=== PATIENT | male | born 1965 | race Two or more races ===

== ENCOUNTER 2017-01-19 20:57 | Emergency (ER) | payer MEDICAID ==
[~2017-01-19] VITALS: Ht 172.7 cm; Wt 79.4 kg
[~2017-01-19 20:57] MED LIST: CARI250T8; ENAL2.5T; METO50TA15; NOR5T; TEMA7.5C
[2017-01-19 22:01] VITALS: BP 163/95
== END 2017-01-19 23:15 | disposition home or self-care (01) ==
LOC: ER 21:00
DX: S93.402A Sprain of unspecified ligament of left ankle, initial encounter (principal); M19.90 Unspecified osteoarthritis, unspecified site; I10 Essential (primary) hypertension; Z87.891 Personal history of nicotine dependence; Z91.041 Radiographic dye allergy status
CPT/HCPCS: 73610

== ENCOUNTER 2017-06-10 21:27 | Emergency (ER) | payer MEDICAID ==
[~2017-06-10] VITALS: Ht 175.3 cm; Wt 81.6 kg
[~2017-06-10 21:27] MED LIST changes: +CARI250T; -CARI250T8; +HYDR-4663; -NOR5T
[2017-06-10 22:08] LABS: Basophils # (auto) 0.1 uL; Basophils % (auto) 0.6 % (0.0-2.0); Eosinophils # (auto) 0 uL; Eosinophils % (auto) 0.1 % (0.0-7.0); Hematocrit 42.8 % (41.0-53.0); Lymphocytes # (auto) 1.4 uL; Lymphocytes % (auto) 8.1 % (10.0-50.0); Mean Corpuscular Hemoglobin 33.7 pg (28.0-32.0); Mean Corpuscular Volume 96.4 fL (80.0-100.0); Mean Platelet Volume 9.2 fL (6.9-10.8); Monocytes % (auto) 5.6 % (0.0-12.0); Neutrophils # (auto) 14.7 uL; Neutrophils % (auto) 85.6 % (37.0-80.0); Nucleated Red Blood Cells % 0.1 %; Platelet Count (auto) 103 10^3/uL (140-450); Red Cell Distribution Width 13.7 % (11.8-14.3); White Blood Cell 17.1 10^3/uL (4.4-10.8)
[2017-06-10 22:29] LABS: Albumin 2.8 g/dL (3.4-5.0); BUN/Creatinine Ratio 15.2; Bilirubin, Total 1.7 mg/dL (0.2-1.0); Calcium 8.2 mg/dL (8.5-10.1); Magnesium 1.8 mg/dL (1.6-2.6); Potassium 3.8 mmol/L (3.5-5.1)
[2017-06-10] MEDS ORDERED: ACETAMINOPHEN 325 MG TAB PO ONE (22:30)
[2017-06-11 02:26] VITALS: BP 141/92
[2017-06-11] MEDS ORDERED: PIPERACILLIN-TAZO 4.5GM 100 ML IV ONE (02:30)
== END 2017-06-11 03:27 | disposition home or self-care (01) ==
LOC: ER 21:27
DX: J18.8 Other pneumonia, unspecified organism (principal); M19.90 Unspecified osteoarthritis, unspecified site; I10 Essential (primary) hypertension; J45.909 Unspecified asthma, uncomplicated; R53.1 Weakness
CPT/HCPCS: 36415; 70450; 71010; 80053; 83735; 84484; 85025; 96365; 99285; J2543

== ENCOUNTER 2017-09-14 10:50 | Emergency (ER) | payer MEDICAID ==
[~2017-09-14] VITALS: Ht 170.2 cm; Wt 68.0 kg
[~2017-09-14 10:50] MED LIST changes: -HYDR-4663; +HYDR-4683
[2017-09-14] MEDS ORDERED: cefTRIAXone SOD 1,000 MG VL IM ONE ×2 (12:45→22:30)
[2017-09-14] MEDS ORDERED: methylPREDNISolone SOD SUCC 125 MG/2 ML VL IM ONE (12:45)
[2017-09-14 22:30] VITALS: BP 138/92
[2017-09-14] MEDS ORDERED: KETOROLAC TROMETH 60MG/2ML VIAL IM ONE (22:30)
[2017-09-14] MEDS ORDERED: TETANUS-DIPTH-ACEL PERTUSSIS 0.5ML SYRG IM ONE (22:45)
== END 2017-09-14 23:21 | disposition home or self-care (01) ==
LOC: ER 10:50
DX: L03.116 Cellulitis of left lower limb (principal); L03.115 Cellulitis of right lower limb; I10 Essential (primary) hypertension; J45.909 Unspecified asthma, uncomplicated; M19.90 Unspecified osteoarthritis, unspecified site; Z88.6 Allergy status to analgesic agent; Z91.041 Radiographic dye allergy status; Z87.891 Personal history of nicotine dependence; Z79.899 Other long term (current) drug therapy
CPT/HCPCS: 90471; 90715; 93971; 96372; 99284; J0696

== ENCOUNTER 2017-09-18 23:21 | Inpatient (IN) | payer MEDICAID ==
[~2017-09-18] VITALS: Ht 175.3 cm; Wt 72.0 kg
[2017-09-19 00:19] LABS: Basophils # (auto) 0.1 uL; Eosinophils # (auto) 0.2 uL; Eosinophils % (auto) 2.7 % (0.0-7.0); Hemoglobin 13.6 g/dL (13.5-17.5); Lymphocytes # (auto) 0.6 uL; Lymphocytes % (auto) 7.7 % (10.0-50.0); Mean Corpuscular Hemoglobin 33.6 pg (28.0-32.0); Mean Corpuscular Hgb Conc. 34.7 g/dL (32.0-36.0); Mean Corpuscular Volume 96.8 fL (80.0-100.0); Monocytes # (auto) 0.8 uL; Monocytes % (auto) 10.3 % (0.0-12.0); Neutrophils # (auto) 6.2 uL; Neutrophils % (auto) 78.3 % (37.0-80.0); Platelet Count (auto) 126 10^3/uL (140-450); Red Blood Cells 4.03 10^6/uL (4.5-5.90); Red Cell Distribution Width 13.3 % (11.8-14.3); White Blood Cell 7.9 10^3/uL (4.4-10.8)
[2017-09-19 00:33] LABS: INR 1.09 (0.9-1.15); Partial Thromboplastin Time 29.6 sec (22.64-33.71); Prothrombin Time 11.9 sec (9.37-12.3)
[2017-09-19 00:35] LABS: Albumin 2.3 g/dL (3.4-5.0); Bilirubin, Total 0.8 mg/dL (0.2-1.0); Total Protein 6.1 g/dL (6.4-8.2)
[2017-09-19 00:37] LABS: Lactic Acid w/Reflex 2.4 mmol/L (0.4-2.0)
[2017-09-19 00:43] LABS: Potassium 2.9 mmol/L (3.5-5.1)
[2017-09-19] MEDS ORDERED: POTASSIUM CHL 20MEQ/50ML 100 ML IV ONE (00:49)
[2017-09-19] MEDS ORDERED: VANCOMYCIN 1GM/250ML 250 ML IV ONE (01:00)
[2017-09-19] MEDS ORDERED: SODIUM CHLORIDE 0.9% 1,000 ML IV ONE (01:00)
[2017-09-19] MEDS ORDERED: ONDANSETRON HCL 4 MG/2 ML VIAL IV ONE (01:00)
[2017-09-19] MEDS ORDERED: cefTRIAXone 1GM/10ml IVPUSH 10 ML IV ONE (01:00)
[2017-09-19] MEDS ORDERED: HYDROmorphone HCL 2 MG/ML VL IV ONE ×2 (01:00→03:30)
[2017-09-19] MEDS: POTASSIUM CHL 20MEQ/50ML 50 ML IV SCH ×2 (01:18→03:35)
[2017-09-19 04:20] LABS: Urine Bacteria NONE SEEN /hpf (None Seen); Urine Blood Negative /uL (Negative); Urine Specific Gravity 1.015 (1.001-1.035); Urine WBC 1 /hpf (0 - 3)
[2017-09-19 04:27] LABS: Alcohol, Urine < 3.0 mg/dL (0-5); Amphetamine Screen, Urine POSITIVE (NEGATIVE); Benzodiazephine Screen, Urine NEGATIVE (NEGATIVE); Cannabinoid Screen, Urine NEGATIVE (NEGATIVE); Cocaine Screen, Urine NEGATIVE (NEGATIVE); Opiate Scree,Urine NEGATIVE (NEGATIVE); Phencyclidine Screen, Urine NEGATIVE (NEGATIVE)
[2017-09-19 04:34] LABS: Barbiturate Scree,Urine NEGATIVE (NEGATIVE)
[2017-09-19] MEDS ORDERED: VANCOMYCIN PER PHARMACY 0 MG IV SCH (06:15)
[2017-09-19] MEDS: SODIUM CHLORIDE 0.9% 1,000 ML IV SCH ×2 (06:35→19:34)
[2017-09-19] MEDS: VANCOMYCIN 1GM/250ML 250 ML IV SCH ×2 (08:29→20:33)
[2017-09-19] MEDS: cefTRIAXone 1GM/10ml IVPUSH 10 ML IV SCH (09:43)
[2017-09-19] MEDS: HCTZ 25 MG TAB PO SCH (09:44)
[2017-09-19] MEDS: ENALAPRIL MALEATE 2.5 MG TAB PO SCH (09:44)
[2017-09-19] MEDS: ENOXAPARIN SOD 40 MG/0.4 ML SYRINGE SC SCH (09:44)
[2017-09-19] MEDS: METOPROLOL SUCCINATE XL 50 MG TAB PO SCH (09:44)
[2017-09-19] MEDS: FAMOTIDINE 20 MG TAB PO SCH ×2 (09:44→22:20)
[2017-09-19] MEDS: MORPHINE SULFATE 10 MG/ML INJ 1ML SDV IV PRN ×2 (10:23→20:09)
[2017-09-19] MEDS: ONDANSETRON HCL 4 MG/2 ML VIAL IV PRN (10:23)
[2017-09-19] MEDS: HYDROcodone-ACET 5/325MG TAB PO PRN ×2 (12:23→18:55)
[2017-09-19 19:52] VITALS: BP 136/67
[2017-09-19 20:00] VITALS: BP 153/76
[2017-09-19 21:55] VITALS: BP 153/76
[2017-09-20] MEDS: MORPHINE SULFATE 10 MG/ML INJ 1ML SDV IV PRN ×3 (01:19→09:37)
[2017-09-20] MEDS ORDERED: POTA10TA51 PO (01:54)
[2017-09-20] MEDS: HYDROcodone-ACET 5/325MG TAB PO PRN ×3 (04:08→15:00)
[2017-09-20 05:00] VITALS: BP 154/87
[2017-09-20] MEDS: SODIUM CHLORIDE 0.9% 1,000 ML IV SCH (05:33)
[2017-09-20 07:41] VITALS: BP 139/81
[2017-09-20 07:51] LABS: Basophils # (auto) 0.1 uL; Basophils % (auto) 1.1 % (0.0-2.0); Eosinophils # (auto) 0.2 uL; Eosinophils % (auto) 2.4 % (0.0-7.0); Hematocrit 38.4 % (41.0-53.0); Hemoglobin 13.3 g/dL (13.5-17.5); Lymphocytes # (auto) 0.9 uL; Lymphocytes % (auto) 14.3 % (10.0-50.0); Mean Corpuscular Hemoglobin 33.6 pg (28.0-32.0); Mean Corpuscular Hgb Conc. 34.5 g/dL (32.0-36.0); Mean Corpuscular Volume 97.2 fL (80.0-100.0); Monocytes # (auto) 0.6 uL; Monocytes % (auto) 8.9 % (0.0-12.0); Neutrophils # (auto) 4.6 uL; Neutrophils % (auto) 73.3 % (37.0-80.0); Nucleated Red Blood Cells % 0.1 %; Platelet Count (auto) 134 10^3/uL (140-450); Red Blood Cells 3.95 10^6/uL (4.5-5.90); Red Cell Distribution Width 13.2 % (11.8-14.3); White Blood Cell 6.3 10^3/uL (4.4-10.8)
[2017-09-20 08:13] LABS: BUN/Creatinine Ratio 24.5; Bilirubin, Total 0.8 mg/dL (0.2-1.0); Calcium 7.4 mg/dL (8.5-10.1); Potassium 3.8 mmol/L (3.5-5.1); Total Protein 5.7 g/dL (6.4-8.2)
[2017-09-20] MEDS: VANCOMYCIN 1GM/250ML 250 ML IV SCH (09:33)
[2017-09-20] MEDS: ENOXAPARIN SOD 40 MG/0.4 ML SYRINGE SC SCH (09:37)
[2017-09-20] MEDS: ENALAPRIL MALEATE 2.5 MG TAB PO SCH (09:38)
[2017-09-20] MEDS: FAMOTIDINE 20 MG TAB PO SCH ×2 (09:38→21:46)
[2017-09-20] MEDS: METOPROLOL SUCCINATE XL 50 MG TAB PO SCH (09:39)
[2017-09-20] MEDS: cefTRIAXone 1GM/10ml IVPUSH 10 ML IV SCH (09:39)
[2017-09-20] MEDS: HCTZ 25 MG TAB PO SCH (09:52)
[2017-09-20 11:26] VITALS: BP 120/69
[2017-09-20 16:22] VITALS: BP 137/79
[2017-09-20] MEDS: HYDROmorphone HCL 2 MG/ML VL IV PRN ×2 (17:04→21:46)
[2017-09-20 20:00] VITALS: BP 153/76
[2017-09-20] MEDS: VANCOMYCIN 1,500 MG in D5W 5% 250 ML IV SCH (21:36)
[2017-09-20 22:12] VITALS: BP 136/80
[2017-09-21] MEDS: HYDROcodone-ACET 5/325MG TAB PO PRN ×4 (00:01→20:30)
[2017-09-21] MEDS: SODIUM CHLORIDE 0.9% 1,000 ML IV SCH ×2 (00:01→11:34)
[2017-09-21] MEDS: TEMAZEPAM 15 MG CAP PO PRN (02:04)
[2017-09-21] MEDS: HYDROmorphone HCL 2 MG/ML VL IV PRN ×6 (02:04→23:16)
[2017-09-21 05:12] VITALS: BP 128/70
[2017-09-21 09:07] VITALS: BP 131/78
[2017-09-21] MEDS: VANCOMYCIN 1,500 MG in D5W 5% 250 ML IV SCH ×2 (10:12→21:19)
[2017-09-21] MEDS: HCTZ 25 MG TAB PO SCH (10:14)
[2017-09-21] MEDS: FAMOTIDINE 20 MG TAB PO SCH ×4 (10:14→22:25)
[2017-09-21] MEDS: METOPROLOL SUCCINATE XL 50 MG TAB PO SCH (10:14)
[2017-09-21] MEDS: ENOXAPARIN SOD 40 MG/0.4 ML SYRINGE SC SCH (10:15)
[2017-09-21] MEDS: ENALAPRIL MALEATE 2.5 MG TAB PO SCH (10:15)
[2017-09-21 10:50] LABS: BUN/Creatinine Ratio 23.9; Calcium 7.3 mg/dL (8.5-10.1); Potassium 3.8 mmol/L (3.5-5.1)
[2017-09-21] MEDS ORDERED: cefTRIAXone 1GM/10ml IVPUSH 10 ML IV SCH (11:00)
[2017-09-21 11:37] LABS: Basophils # (auto) 0.1 uL; Basophils % (auto) 0.8 % (0.0-2.0); Eosinophils # (auto) 0.2 uL; Eosinophils % (auto) 3.3 % (0.0-7.0); Hemoglobin 12.6 g/dL (13.5-17.5); Lymphocytes # (auto) 1.2 uL; Lymphocytes % (auto) 18.3 % (10.0-50.0); Mean Corpuscular Hemoglobin 33.7 pg (28.0-32.0); Mean Corpuscular Hgb Conc. 34.9 g/dL (32.0-36.0); Mean Corpuscular Volume 96.6 fL (80.0-100.0); Monocytes # (auto) 0.7 uL; Monocytes % (auto) 10.5 % (0.0-12.0); Neutrophils # (auto) 4.3 uL; Neutrophils % (auto) 67.1 % (37.0-80.0); Platelet Count (auto) 135 10^3/uL (140-450); Red Blood Cells 3.73 10^6/uL (4.5-5.90); Red Cell Distribution Width 13.4 % (11.8-14.3); White Blood Cell 6.4 10^3/uL (4.4-10.8)
[2017-09-21] MEDS: PIPERACILLIN-TAZO 4.5GM 50 ML IV SCH ×2 (12:21→20:15)
[2017-09-21] MEDS: METHOCARBAMOL 500 MG TAB PO SCH ×5 (12:22→22:25)
[2017-09-21 13:11] VITALS: BP 139/83
[2017-09-21 16:10] VITALS: BP 140/78
[2017-09-21 21:58] VITALS: BP 130/68
[2017-09-22] MEDS: SODIUM CHLORIDE 0.9% 1,000 ML IV SCH ×2 (00:54→14:14)
[2017-09-22] MEDS: HYDROmorphone HCL 2 MG/ML VL IV PRN ×4 (03:52→19:57)
[2017-09-22] MEDS: PIPERACILLIN-TAZO 4.5GM 50 ML IV SCH ×3 (03:58→20:48)
[2017-09-22 05:47] VITALS: BP 136/76
[2017-09-22 08:00] VITALS: BP_SYST 101; BP_SYST 127; BP_DIAS 68; BP_DIAS 77
[2017-09-22] MEDS: VANCOMYCIN 1,500 MG in D5W 5% 250 ML IV SCH (09:47)
[2017-09-22] MEDS: HCTZ 25 MG TAB PO SCH (09:47)
[2017-09-22] MEDS: METOPROLOL SUCCINATE XL 50 MG TAB PO SCH (09:48)
[2017-09-22] MEDS: ENALAPRIL MALEATE 2.5 MG TAB PO SCH (09:49)
[2017-09-22] MEDS: ENOXAPARIN SOD 40 MG/0.4 ML SYRINGE SC SCH (09:50)
[2017-09-22] MEDS: KETOROLAC TROMETH 30 MG/ML 1ML VIAL IV PRN ×3 (10:02→21:55)
[2017-09-22 10:30] LABS: Basophils # (auto) 0.1 uL; Basophils % (auto) 1.2 % (0.0-2.0); Eosinophils # (auto) 0.1 uL; Eosinophils % (auto) 2.1 % (0.0-7.0); Hematocrit 36.1 % (41.0-53.0); Hemoglobin 12.3 g/dL (13.5-17.5); Lymphocytes # (auto) 0.9 uL; Lymphocytes % (auto) 13.9 % (10.0-50.0); Mean Corpuscular Hgb Conc. 34.2 g/dL (32.0-36.0); Mean Corpuscular Volume 96.6 fL (80.0-100.0); Monocytes # (auto) 0.6 uL; Monocytes % (auto) 8.3 % (0.0-12.0); Neutrophils # (auto) 4.9 uL; Neutrophils % (auto) 74.5 % (37.0-80.0); Platelet Count (auto) 147 10^3/uL (140-450); Red Blood Cells 3.74 10^6/uL (4.5-5.90); Red Cell Distribution Width 13.2 % (11.8-14.3); White Blood Cell 6.6 10^3/uL (4.4-10.8)
[2017-09-22 10:54] LABS: Albumin 1.9 g/dL (3.4-5.0); BUN/Creatinine Ratio 27.5; Bilirubin, Total 0.5 mg/dL (0.2-1.0); Calcium 7.4 mg/dL (8.5-10.1); Potassium 4.3 mmol/L (3.5-5.1); Total Protein 5.6 g/dL (6.4-8.2)
[2017-09-22] MEDS: METHOCARBAMOL 500 MG TAB PO SCH ×2 (12:20→17:52)
[2017-09-22 13:01] VITALS: BP 133/77
[2017-09-22 17:21] VITALS: BP 101/45
[2017-09-22] MEDS: VANCOMYCIN 1GM/250ML 250 ML IV SCH (17:52)
[2017-09-22 20:00] VITALS: BP 136/78
[2017-09-22 21:54] VITALS: BP 136/78
[2017-09-22] MEDS: FAMOTIDINE 20 MG TAB PO SCH (22:20)
[2017-09-22] MEDS: TEMAZEPAM 15 MG CAP PO PRN (22:21)
[2017-09-23] MEDS: HYDROmorphone HCL 2 MG/ML VL IV PRN ×6 (00:12→23:04)
[2017-09-23] MEDS: VANCOMYCIN 1GM/250ML 250 ML IV SCH ×3 (00:49→20:13)
[2017-09-23] MEDS: HYDROcodone-ACET 5/325MG TAB PO PRN ×3 (03:01→21:17)
[2017-09-23] MEDS: SODIUM CHLORIDE 0.9% 1,000 ML IV SCH ×2 (03:50→18:47)
[2017-09-23] MEDS: KETOROLAC TROMETH 30 MG/ML 1ML VIAL IV PRN ×3 (04:06→21:15)
[2017-09-23] MEDS: PIPERACILLIN-TAZO 4.5GM 50 ML IV SCH ×3 (04:06→23:04)
[2017-09-23 04:42] VITALS: BP 143/86
[2017-09-23] MEDS: METHOCARBAMOL 500 MG TAB PO SCH ×4 (06:01→23:03)
[2017-09-23 09:00] VITALS: BP 113/71
[2017-09-23] MEDS: ENALAPRIL MALEATE 2.5 MG TAB PO SCH (10:00)
[2017-09-23] MEDS: ENOXAPARIN SOD 40 MG/0.4 ML SYRINGE SC SCH (10:00)
[2017-09-23] MEDS: FAMOTIDINE 20 MG TAB PO SCH (10:01)
[2017-09-23] MEDS: HCTZ 25 MG TAB PO SCH (10:01)
[2017-09-23] MEDS: METOPROLOL SUCCINATE XL 50 MG TAB PO SCH (10:02)
[2017-09-23 13:00] VITALS: BP 133/71
[2017-09-23] MEDS: ONDANSETRON HCL 4 MG/2 ML VIAL IV PRN ×3 (14:36→23:04)
[2017-09-23 17:00] VITALS: BP 129/72
[2017-09-23 20:00] VITALS: BP 151/80
[2017-09-23 22:00] VITALS: BP 151/80
[2017-09-24] MEDS: HYDROcodone-ACET 5/325MG TAB PO PRN ×4 (01:15→16:50)
[2017-09-24] MEDS: HYDROmorphone HCL 2 MG/ML VL IV PRN ×4 (03:23→20:19)
[2017-09-24] MEDS: ONDANSETRON HCL 4 MG/2 ML VIAL IV PRN ×4 (03:23→20:18)
[2017-09-24] MEDS: VANCOMYCIN 1GM/250ML 250 ML IV SCH ×3 (04:10→19:37)
[2017-09-24 05:00] VITALS: BP 150/102
[2017-09-24] MEDS: SODIUM CHLORIDE 0.9% 1,000 ML IV SCH ×2 (05:47→19:37)
[2017-09-24] MEDS: PIPERACILLIN-TAZO 4.5GM 50 ML IV SCH ×4 (05:47→21:44)
[2017-09-24] MEDS: METHOCARBAMOL 500 MG TAB PO SCH ×4 (05:47→21:43)
[2017-09-24] MEDS: KETOROLAC TROMETH 30 MG/ML 1ML VIAL IV PRN ×3 (05:47→18:15)
[2017-09-24 07:56] LABS: Basophils # (auto) 0.1 uL; Basophils % (auto) 0.8 % (0.0-2.0); Eosinophils # (auto) 0.2 uL; Eosinophils % (auto) 3.2 % (0.0-7.0); Hematocrit 34.3 % (41.0-53.0); Hemoglobin 11.7 g/dL (13.5-17.5); Lymphocytes # (auto) 1.2 uL; Mean Corpuscular Hemoglobin 33.5 pg (28.0-32.0); Mean Corpuscular Hgb Conc. 34.2 g/dL (32.0-36.0); Mean Corpuscular Volume 97.8 fL (80.0-100.0); Monocytes # (auto) 0.6 uL; Monocytes % (auto) 9.5 % (0.0-12.0); Neutrophils # (auto) 4.4 uL; Neutrophils % (auto) 67.5 % (37.0-80.0); Platelet Count (auto) 157 10^3/uL (140-450); Red Blood Cells 3.51 10^6/uL (4.5-5.90); Red Cell Distribution Width 13.3 % (11.8-14.3); White Blood Cell 6.6 10^3/uL (4.4-10.8)
[2017-09-24 08:08] LABS: Calcium 7.3 mg/dL (8.5-10.1); Potassium 3.8 mmol/L (3.5-5.1)
[2017-09-24 09:00] VITALS: BP 167/96
[2017-09-24] MEDS: HCTZ 25 MG TAB PO SCH (09:39)
[2017-09-24] MEDS: METOPROLOL SUCCINATE XL 50 MG TAB PO SCH (09:39)
[2017-09-24] MEDS: FAMOTIDINE 20 MG TAB PO SCH ×2 (09:40→21:44)
[2017-09-24] MEDS: ENALAPRIL MALEATE 2.5 MG TAB PO SCH (09:40)
[2017-09-24] MEDS: ENOXAPARIN SOD 40 MG/0.4 ML SYRINGE SC SCH (09:40)
[2017-09-24 13:00] VITALS: BP 135/91
[2017-09-24 17:00] VITALS: BP 166/93
[2017-09-24] MEDS: TEMAZEPAM 15 MG CAP PO PRN (21:44)
[2017-09-24 22:00] VITALS: BP 125/71
[2017-09-25] MEDS: ONDANSETRON HCL 4 MG/2 ML VIAL IV PRN ×2 (00:51→05:42)
[2017-09-25] MEDS: HYDROmorphone HCL 2 MG/ML VL IV PRN ×6 (00:51→23:07)
[2017-09-25] MEDS: KETOROLAC TROMETH 30 MG/ML 1ML VIAL IV PRN ×3 (02:24→17:08)
[2017-09-25] MEDS: VANCOMYCIN 1GM/250ML 250 ML IV SCH ×3 (03:39→19:48)
[2017-09-25 05:00] VITALS: BP 153/92
[2017-09-25] MEDS: METHOCARBAMOL 500 MG TAB PO SCH ×4 (05:40→21:42)
[2017-09-25] MEDS: PIPERACILLIN-TAZO 4.5GM 50 ML IV SCH ×3 (05:41→21:43)
[2017-09-25 07:30] LABS: Basophils # (auto) 0.1 uL; Basophils % (auto) 1.3 % (0.0-2.0); Eosinophils # (auto) 0.2 uL; Eosinophils % (auto) 2.5 % (0.0-7.0); Hematocrit 34.2 % (41.0-53.0); Hemoglobin 11.7 g/dL (13.5-17.5); Lymphocytes # (auto) 1.5 uL; Lymphocytes % (auto) 17.6 % (10.0-50.0); Mean Corpuscular Hemoglobin 33.3 pg (28.0-32.0); Mean Corpuscular Hgb Conc. 34.3 g/dL (32.0-36.0); Mean Corpuscular Volume 97.1 fL (80.0-100.0); Monocytes # (auto) 0.8 uL; Monocytes % (auto) 8.7 % (0.0-12.0); Neutrophils # (auto) 6.1 uL; Neutrophils % (auto) 69.9 % (37.0-80.0); Nucleated Red Blood Cells % 0.1 %; Platelet Count (auto) 179 10^3/uL (140-450); Red Blood Cells 3.53 10^6/uL (4.5-5.90); Red Cell Distribution Width 13.4 % (11.8-14.3); White Blood Cell 8.8 10^3/uL (4.4-10.8)
[2017-09-25 07:57] LABS: Albumin 1.9 g/dL (3.4-5.0); BUN/Creatinine Ratio 17.5; Bilirubin, Total 0.5 mg/dL (0.2-1.0); Calcium 7.4 mg/dL (8.5-10.1); Potassium 4.3 mmol/L (3.5-5.1); Total Protein 5.9 g/dL (6.4-8.2)
[2017-09-25 08:47] VITALS: BP 133/90
[2017-09-25] MEDS: SODIUM CHLORIDE 0.9% 1,000 ML IV SCH ×2 (08:54→22:28)
[2017-09-25] MEDS: METOPROLOL SUCCINATE XL 50 MG TAB PO SCH (10:00)
[2017-09-25] MEDS ORDERED: HYDROmorphone HCL 2 MG/ML VL IV ONE (10:00)
[2017-09-25] MEDS: LEVOFLOXACIN 750MG 150 ML IV SCH (10:17)
[2017-09-25] MEDS: HCTZ 25 MG TAB PO SCH (10:18)
[2017-09-25] MEDS: FAMOTIDINE 20 MG TAB PO SCH ×2 (10:18→21:42)
[2017-09-25] MEDS: ENOXAPARIN SOD 40 MG/0.4 ML SYRINGE SC SCH (10:18)
[2017-09-25] MEDS: ENALAPRIL MALEATE 2.5 MG TAB PO SCH (10:19)
[2017-09-25] MEDS: ACETAMINOPHEN 325 MG TAB PO PRN (10:27)
[2017-09-25 12:49] VITALS: BP 151/79
[2017-09-25 16:45] VITALS: BP 132/69
[2017-09-25 21:39] VITALS: BP 149/92
[2017-09-25] MEDS: TEMAZEPAM 15 MG CAP PO PRN (21:42)
[2017-09-26] MEDS: KETOROLAC TROMETH 30 MG/ML 1ML VIAL IV PRN ×2 (01:35→09:24)
[2017-09-26] MEDS: HYDROmorphone HCL 2 MG/ML VL IV PRN (03:38)
[2017-09-26] MEDS: VANCOMYCIN 1GM/250ML 250 ML IV SCH ×3 (03:48→20:40)
[2017-09-26 05:00] VITALS: BP 139/89
[2017-09-26] MEDS: PIPERACILLIN-TAZO 4.5GM 50 ML IV SCH ×3 (05:38→23:04)
[2017-09-26] MEDS: METHOCARBAMOL 500 MG TAB PO SCH ×4 (05:39→21:41)
[2017-09-26 09:04] VITALS: BP 132/83
[2017-09-26] MEDS: FAMOTIDINE 20 MG TAB PO SCH ×2 (09:25→21:41)
[2017-09-26] MEDS: HCTZ 25 MG TAB PO SCH (09:26)
[2017-09-26] MEDS: LEVOFLOXACIN 750MG 150 ML IV SCH (09:27)
[2017-09-26] MEDS: ENALAPRIL MALEATE 2.5 MG TAB PO SCH (09:27)
[2017-09-26] MEDS: METOPROLOL SUCCINATE XL 50 MG TAB PO SCH (09:28)
[2017-09-26] MEDS: ENOXAPARIN SOD 40 MG/0.4 ML SYRINGE SC SCH (09:41)
[2017-09-26] MEDS: SODIUM CHLORIDE 0.9% 1,000 ML IV SCH (11:34)
[2017-09-26] MEDS ORDERED: KETOROLAC TROMETH 30 MG/ML 1ML VIAL IV PRN (12:00)
[2017-09-26] MEDS: MORPHINE SULFATE 10 MG/ML INJ 1ML SDV IV PRN ×3 (12:40→21:40)
[2017-09-26 13:03] VITALS: BP 118/62
[2017-09-26] MEDS: HYDROcodone-ACET 5/325MG TAB PO PRN (15:40)
[2017-09-26 17:20] VITALS: BP 150/87
[2017-09-26] MEDS: PRO-STAT 64 30ML PO SCH (18:00)
[2017-09-26] MEDS: TEMAZEPAM 15 MG CAP PO PRN (21:41)
[2017-09-26] MEDS: ASCORBIC ACID 500 MG TAB PO SCH (21:42)
[2017-09-26 22:49] VITALS: BP 141/78
[2017-09-27] MEDS: SODIUM CHLORIDE 0.9% 1,000 ML IV SCH ×2 (00:41→14:16)
[2017-09-27] MEDS: MORPHINE SULFATE 10 MG/ML INJ 1ML SDV IV PRN ×5 (01:50→21:23)
[2017-09-27] MEDS: VANCOMYCIN 1GM/250ML 250 ML IV SCH ×3 (03:44→19:56)
[2017-09-27 04:56] VITALS: BP 141/82
[2017-09-27] MEDS: PIPERACILLIN-TAZO 4.5GM 50 ML IV SCH ×3 (06:26→22:35)
[2017-09-27] MEDS: METHOCARBAMOL 500 MG TAB PO SCH ×4 (06:27→22:43)
[2017-09-27 08:00] VITALS: BP_SYST 132; BP_SYST 144; BP_DIAS 82; BP_DIAS 83
[2017-09-27] MEDS: ASCORBIC ACID 500 MG TAB PO SCH ×2 (10:00→22:43)
[2017-09-27] MEDS: ENOXAPARIN SOD 40 MG/0.4 ML SYRINGE SC SCH ×2 (10:00→11:22)
[2017-09-27] MEDS: HCTZ 25 MG TAB PO SCH (11:20)
[2017-09-27] MEDS: ENALAPRIL MALEATE 2.5 MG TAB PO SCH (11:20)
[2017-09-27] MEDS: METOPROLOL SUCCINATE XL 50 MG TAB PO SCH (11:20)
[2017-09-27] MEDS: PRO-STAT 64 30ML PO SCH ×2 (11:21→17:15)
[2017-09-27] MEDS: FAMOTIDINE 20 MG TAB PO SCH ×2 (11:21→22:43)
[2017-09-27] MEDS: MULTIPLE VITAMINS W/ MINERALS TAB PO SCH (11:21)
[2017-09-27] MEDS: LEVOFLOXACIN 750MG 150 ML IV SCH (11:21)
[2017-09-27 13:00] VITALS: BP 148/74
[2017-09-27 16:52] VITALS: BP 148/90
[2017-09-27 22:00] VITALS: BP 138/76
[2017-09-28] MEDS ORDERED: MORPHINE SULFATE 4 MG/ML SYR/VIAL ONE ×2 (01:42→05:40)
[2017-09-28] MEDS: MORPHINE SULFATE 10 MG/ML INJ 1ML SDV IV PRN ×2 (01:47→05:43)
[2017-09-28] MEDS: SODIUM CHLORIDE 0.9% 1,000 ML IV SCH ×2 (04:18→17:50)
[2017-09-28] MEDS: VANCOMYCIN 1GM/250ML 250 ML IV SCH ×3 (04:18→20:09)
[2017-09-28 05:46] VITALS: BP 128/69
[2017-09-28] MEDS: PIPERACILLIN-TAZO 4.5GM 50 ML IV SCH ×3 (06:28→22:11)
[2017-09-28] MEDS: METHOCARBAMOL 500 MG TAB PO SCH ×4 (06:28→22:12)
[2017-09-28] MEDS: PRO-STAT 64 30ML PO SCH ×2 (08:00→17:50)
[2017-09-28 09:26] VITALS: BP 140/90
[2017-09-28] MEDS: LEVOFLOXACIN 750MG 150 ML IV SCH (09:33)
[2017-09-28] MEDS: ENOXAPARIN SOD 40 MG/0.4 ML SYRINGE SC SCH (09:33)
[2017-09-28] MEDS: ENALAPRIL MALEATE 2.5 MG TAB PO SCH (09:34)
[2017-09-28] MEDS: METOPROLOL SUCCINATE XL 50 MG TAB PO SCH (09:34)
[2017-09-28] MEDS: MULTIPLE VITAMINS W/ MINERALS TAB PO SCH (09:35)
[2017-09-28] MEDS: FAMOTIDINE 20 MG TAB PO SCH ×2 (09:35→22:00)
[2017-09-28] MEDS: HCTZ 25 MG TAB PO SCH (09:35)
[2017-09-28] MEDS: ASCORBIC ACID 500 MG TAB PO SCH ×2 (09:58→22:13)
[2017-09-28] MEDS: HYDROcodone-ACET 5/325MG TAB PO PRN ×2 (10:00→22:13)
[2017-09-28] MEDS: MORPHINE SULF INJ 2 MG/ML SYRINGE 1ML IV PRN ×2 (11:22→16:26)
[2017-09-28] MEDS: CARISOPRODOL 350 MG TAB PO SCH ×3 (12:14→23:57)
[2017-09-28 13:00] VITALS: BP 130/89
[2017-09-28] MEDS: HYDROcodone-ACET 10/325MG TAB PO PRN (14:35)
[2017-09-28 17:06] VITALS: BP 123/80
[2017-09-28 22:48] VITALS: BP 133/73
[2017-09-29] MEDS: HYDROcodone-ACET 10/325MG TAB PO PRN (01:33)
[2017-09-29] MEDS: VANCOMYCIN 1GM/250ML 250 ML IV SCH ×3 (04:14→19:49)
[2017-09-29 04:58] VITALS: BP 113/69
[2017-09-29] MEDS: PIPERACILLIN-TAZO 4.5GM 50 ML IV SCH ×3 (05:43→22:53)
[2017-09-29] MEDS: METHOCARBAMOL 500 MG TAB PO SCH ×4 (05:44→22:54)
[2017-09-29] MEDS: SODIUM CHLORIDE 0.9% 1,000 ML IV SCH ×2 (05:44→19:49)
[2017-09-29] MEDS: CARISOPRODOL 350 MG TAB PO SCH ×3 (05:44→18:15)
[2017-09-29] MEDS: MORPHINE SULF INJ 2 MG/ML SYRINGE 1ML IV PRN ×4 (05:51→19:49)
[2017-09-29 06:02] LABS: Albumin 2.1 g/dL (3.4-5.0); BUN/Creatinine Ratio 28.6; Calcium 8.3 mg/dL (8.5-10.1); Potassium 3.9 mmol/L (3.5-5.1)
[2017-09-29 06:04] LABS: Bilirubin, Total 0.6 mg/dL (0.2-1.0); Total Protein 6.7 g/dL (6.4-8.2)
[2017-09-29] MEDS: PRO-STAT 64 30ML PO SCH ×2 (08:00→18:15)
[2017-09-29 09:00] VITALS: BP 134/94
[2017-09-29] MEDS: ENOXAPARIN SOD 40 MG/0.4 ML SYRINGE SC SCH ×2 (10:00→10:26)
[2017-09-29] MEDS: HCTZ 25 MG TAB PO SCH (10:25)
[2017-09-29] MEDS: METOPROLOL SUCCINATE XL 50 MG TAB PO SCH (10:25)
[2017-09-29] MEDS: FAMOTIDINE 20 MG TAB PO SCH ×2 (10:26→22:53)
[2017-09-29] MEDS: MULTIPLE VITAMINS W/ MINERALS TAB PO SCH (10:26)
[2017-09-29] MEDS: ENALAPRIL MALEATE 2.5 MG TAB PO SCH (10:26)
[2017-09-29] MEDS: ASCORBIC ACID 500 MG TAB PO SCH ×2 (10:26→22:54)
[2017-09-29] MEDS: LEVOFLOXACIN 750MG 150 ML IV SCH (10:27)
[2017-09-29 13:00] VITALS: BP 140/85
[2017-09-29 16:56] VITALS: BP 125/69
[2017-09-29 22:00] VITALS: BP 134/87
[2017-09-30] MEDS: HYDROcodone-ACET 5/325MG TAB PO PRN ×2 (00:43→15:57)
[2017-09-30] MEDS: MORPHINE SULF INJ 2 MG/ML SYRINGE 1ML IV PRN ×2 (01:15→06:05)
[2017-09-30] MEDS: VANCOMYCIN 1GM/250ML 250 ML IV SCH ×3 (04:14→20:41)
[2017-09-30] MEDS: HYDROcodone-ACET 10/325MG TAB PO PRN ×3 (04:23→17:49)
[2017-09-30 05:00] VITALS: BP 135/73
[2017-09-30] MEDS: PIPERACILLIN-TAZO 4.5GM 50 ML IV SCH ×3 (06:30→22:15)
[2017-09-30] MEDS: METHOCARBAMOL 500 MG TAB PO SCH ×4 (06:50→22:14)
[2017-09-30] MEDS: CARISOPRODOL 350 MG TAB PO SCH ×4 (06:50→17:49)
[2017-09-30 09:00] VITALS: BP 134/83
[2017-09-30] MEDS: ASCORBIC ACID 500 MG TAB PO SCH ×2 (09:19→22:14)
[2017-09-30] MEDS: FAMOTIDINE 20 MG TAB PO SCH ×2 (09:19→22:15)
[2017-09-30] MEDS: LEVOFLOXACIN 750MG 150 ML IV SCH (09:19)
[2017-09-30] MEDS: MULTIPLE VITAMINS W/ MINERALS TAB PO SCH (09:19)
[2017-09-30] MEDS: HCTZ 25 MG TAB PO SCH (09:20)
[2017-09-30] MEDS: METOPROLOL SUCCINATE XL 50 MG TAB PO SCH (09:20)
[2017-09-30] MEDS: ENALAPRIL MALEATE 2.5 MG TAB PO SCH (09:21)
[2017-09-30] MEDS: SODIUM CHLORIDE 0.9% 1,000 ML IV SCH ×2 (09:21→22:16)
[2017-09-30] MEDS: PRO-STAT 64 30ML PO SCH ×2 (09:22→17:48)
[2017-09-30] MEDS: ENOXAPARIN SOD 40 MG/0.4 ML SYRINGE SC SCH (09:32)
[2017-09-30 12:21] VITALS: BP 126/79
[2017-09-30] MEDS ORDERED: KETOROLAC TROMETH 30 MG/ML 1ML VIAL IV PRN (14:30)
[2017-09-30 14:33] LABS: BUN/Creatinine Ratio 21.9; Calcium 7.9 mg/dL (8.5-10.1); Potassium 3.7 mmol/L (3.5-5.1)
[2017-09-30] MEDS: ACETAMINOPHEN 325 MG TAB PO PRN (15:57)
[2017-09-30] MEDS ORDERED: CEFTRIAXONE SODIUM 2 GM in D5W 5% 50 ML IV ONE (16:00)
[2017-09-30 16:49] VITALS: BP 95/58
[2017-09-30 22:19] VITALS: BP 114/70
[2017-10-01] MEDS: CARISOPRODOL 350 MG TAB PO SCH ×5 (00:21→23:47)
[2017-10-01] MEDS: HYDROcodone-ACET 10/325MG TAB PO PRN ×3 (03:29→17:07)
[2017-10-01] MEDS: VANCOMYCIN 1GM/250ML 250 ML IV SCH ×3 (03:59→20:45)
[2017-10-01] MEDS: ACETAMINOPHEN 325 MG TAB PO PRN ×2 (04:02→18:10)
[2017-10-01 04:26] VITALS: BP 129/71
[2017-10-01] MEDS: PIPERACILLIN-TAZO 4.5GM 50 ML IV SCH ×3 (05:27→23:34)
[2017-10-01] MEDS: METHOCARBAMOL 500 MG TAB PO SCH ×4 (05:28→22:37)
[2017-10-01] MEDS: PRO-STAT 64 30ML PO SCH ×2 (08:00→18:00)
[2017-10-01 08:25] LABS: Basophils # (auto) 0.1 uL; Basophils % (auto) 1.4 % (0.0-2.0); Eosinophils # (auto) 0.1 uL; Eosinophils % (auto) 1.1 % (0.0-7.0); Hematocrit 40.3 % (41.0-53.0); Mean Corpuscular Hemoglobin 33.5 pg (28.0-32.0); Mean Corpuscular Hgb Conc. 34.7 g/dL (32.0-36.0); Mean Corpuscular Volume 96.5 fL (80.0-100.0); Monocytes # (auto) 0.5 uL; Monocytes % (auto) 10.2 % (0.0-12.0); Neutrophils # (auto) 3.7 uL; Neutrophils % (auto) 69.3 % (37.0-80.0); Nucleated Red Blood Cells % 0.1 %; Platelet Count (auto) 65 10^3/uL (140-450); Red Blood Cells 4.18 10^6/uL (4.5-5.90); Red Cell Distribution Width 14.4 % (11.8-14.3); White Blood Cell 5.4 10^3/uL (4.4-10.8)
[2017-10-01 08:41] LABS: Potassium 3.9 mmol/L (3.5-5.1)
[2017-10-01 09:00] VITALS: BP 117/71
[2017-10-01 09:32] LABS: INR 1.19 (0.9-1.15)
[2017-10-01] MEDS: LEVOFLOXACIN 750MG 150 ML IV SCH (09:57)
[2017-10-01] MEDS: MULTIPLE VITAMINS W/ MINERALS TAB PO SCH (09:58)
[2017-10-01] MEDS: ASCORBIC ACID 500 MG TAB PO SCH ×2 (09:58→22:27)
[2017-10-01] MEDS: FAMOTIDINE 20 MG TAB PO SCH ×2 (09:58→22:27)
[2017-10-01] MEDS: HCTZ 25 MG TAB PO SCH (09:59)
[2017-10-01] MEDS: ENALAPRIL MALEATE 2.5 MG TAB PO SCH (10:00)
[2017-10-01] MEDS: METOPROLOL SUCCINATE XL 50 MG TAB PO SCH (10:00)
[2017-10-01] MEDS: ENOXAPARIN SOD 40 MG/0.4 ML SYRINGE SC SCH (10:00)
[2017-10-01 13:00] VITALS: BP 136/89
[2017-10-01] MEDS ORDERED: LIDOCAINE 1% HCL (LOCAL ANESTH.) INJ 20ML MDV ID ONE (15:30)
[2017-10-01 17:00] VITALS: BP 123/73
[2017-10-01] MEDS: SODIUM CHLORIDE 0.9% 1,000 ML IV SCH (17:08)
[2017-10-01] MEDS: ONDANSETRON HCL 4 MG/2 ML VIAL IV PRN (20:45)
[2017-10-01] MEDS: SODIUM CHLOR 0.9% PF (SALINE LOCK) 10ML VIAL IV SCH (20:45)
[2017-10-01 22:00] VITALS: BP 134/68
[2017-10-01] MEDS: HYDROcodone-ACET 5/325MG TAB PO PRN (23:48)
[2017-10-02] MEDS: SODIUM CHLORIDE 0.9% 1,000 ML IV SCH ×2 (00:54→14:14)
[2017-10-02] MEDS: VANCOMYCIN 1GM/250ML 250 ML IV SCH ×3 (04:01→20:30)
[2017-10-02] MEDS: PIPERACILLIN-TAZO 4.5GM 50 ML IV SCH ×2 (05:46→14:00)
[2017-10-02] MEDS: CARISOPRODOL 350 MG TAB PO SCH ×5 (05:47→18:00)
[2017-10-02] MEDS: METHOCARBAMOL 500 MG TAB PO SCH ×6 (05:47→21:45)
[2017-10-02 06:17] VITALS: BP 135/81
[2017-10-02] MEDS: ACETAMINOPHEN 325 MG TAB PO PRN (07:19)
[2017-10-02] MEDS: PRO-STAT 64 30ML PO SCH ×2 (08:00→18:00)
[2017-10-02 09:00] VITALS: BP 149/87
[2017-10-02] MEDS: ENOXAPARIN SOD 40 MG/0.4 ML SYRINGE SC SCH (10:00)
[2017-10-02] MEDS: MULTIPLE VITAMINS W/ MINERALS TAB PO SCH (10:10)
[2017-10-02] MEDS: LEVOFLOXACIN 750MG 150 ML IV SCH (10:10)
[2017-10-02] MEDS: SODIUM CHLOR 0.9% PF (SALINE LOCK) 10ML VIAL IV SCH ×2 (10:10→21:43)
[2017-10-02] MEDS: FAMOTIDINE 20 MG TAB PO SCH ×2 (10:10→21:44)
[2017-10-02] MEDS: HCTZ 25 MG TAB PO SCH (10:17)
[2017-10-02] MEDS: METOPROLOL SUCCINATE XL 50 MG TAB PO SCH (10:18)
[2017-10-02] MEDS: ASCORBIC ACID 500 MG TAB PO SCH ×2 (10:19→21:44)
[2017-10-02] MEDS: ENALAPRIL MALEATE 2.5 MG TAB PO SCH (10:19)
[2017-10-02 13:00] VITALS: BP 120/72
[2017-10-02 13:34] LABS: Basophils # (auto) 0 uL; Eosinophils # (auto) 0.1 uL; Hemoglobin 14.7 g/dL (13.5-17.5); Monocytes # (auto) 0.8 uL; Neutrophils # (auto) 3.2 uL; Nucleated Red Blood Cells % 0.1 %; White Blood Cell 5.7 10^3/uL (4.4-10.8)
[2017-10-02 13:36] LABS: Basophils % (auto) 0.5 % (0.0-2.0); Eosinophils % (auto) 2.1 % (0.0-7.0); Lymphocytes # (auto) 1.5 uL; Lymphocytes % (auto) 26.2 % (10.0-50.0); Mean Corpuscular Hemoglobin 33.3 pg (28.0-32.0); Mean Corpuscular Hgb Conc. 34.2 g/dL (32.0-36.0); Mean Corpuscular Volume 97.2 fL (80.0-100.0); Monocytes % (auto) 14.4 % (0.0-12.0); Neutrophils % (auto) 56.8 % (37.0-80.0); Red Blood Cells 4.43 10^6/uL (4.5-5.90); Red Cell Distribution Width 14.4 % (11.8-14.3)
[2017-10-02 13:53] LABS: Albumin 2.5 g/dL (3.4-5.0); Bilirubin, Total 0.6 mg/dL (0.2-1.0); Calcium 8.2 mg/dL (8.5-10.1); Potassium 3.5 mmol/L (3.5-5.1); Total Protein 7.5 g/dL (6.4-8.2)
[2017-10-02 15:11] LABS: Platelet Count (auto) 12 10^3/uL (140-450)
[2017-10-02] MEDS: OXYCODONE W/ ACETAMINOPHEN 5/325MG TABLET PO PRN ×2 (16:49→20:44)
[2017-10-02 17:00] VITALS: BP 143/71
[2017-10-02 22:00] VITALS: BP 145/84
[2017-10-03] MEDS: CARISOPRODOL 350 MG TAB PO SCH ×5 (00:20→23:39)
[2017-10-03] MEDS: SODIUM CHLORIDE 0.9% 1,000 ML IV SCH ×2 (03:34→16:54)
[2017-10-03] MEDS: VANCOMYCIN 1GM/250ML 250 ML IV SCH ×3 (04:04→19:54)
[2017-10-03 05:00] VITALS: BP 130/82
[2017-10-03] MEDS: METHOCARBAMOL 500 MG TAB PO SCH ×4 (05:38→21:29)
[2017-10-03] MEDS: OXYCODONE W/ ACETAMINOPHEN 5/325MG TABLET PO PRN (08:55)
[2017-10-03 09:00] VITALS: BP 134/78
[2017-10-03] MEDS ORDERED: MEPERIDINE HCL (50 MG/ML) 1 ML VIAL IV ONE (09:00)
[2017-10-03] MEDS: ENOXAPARIN SOD 40 MG/0.4 ML SYRINGE SC SCH (10:00)
[2017-10-03 10:25] LABS: Basophils # (auto) 0 uL; Eosinophils # (auto) 0.2 uL; Hemoglobin 12.8 g/dL (13.5-17.5); Lymphocytes # (auto) 1.5 uL; Monocytes # (auto) 0.7 uL
[2017-10-03 10:26] LABS: Basophils % (auto) 0.4 % (0.0-2.0); Eosinophils % (auto) 3.9 % (0.0-7.0); Hematocrit 37.3 % (41.0-53.0); Lymphocytes % (auto) 28.6 % (10.0-50.0); Mean Corpuscular Hemoglobin 33.3 pg (28.0-32.0); Mean Corpuscular Hgb Conc. 34.3 g/dL (32.0-36.0); Monocytes % (auto) 13.2 % (0.0-12.0); Neutrophils # (auto) 2.8 uL; Neutrophils % (auto) 53.9 % (37.0-80.0); Nucleated Red Blood Cells % 0.1 %; Red Blood Cells 3.84 10^6/uL (4.5-5.90); Red Cell Distribution Width 14.2 % (11.8-14.3); White Blood Cell 5.2 10^3/uL (4.4-10.8)
[2017-10-03 10:51] LABS: Albumin 2.1 g/dL (3.4-5.0); BUN/Creatinine Ratio 23.7; Bilirubin, Total 0.7 mg/dL (0.2-1.0); Potassium 3.6 mmol/L (3.5-5.1); Total Protein 6.5 g/dL (6.4-8.2)
[2017-10-03 11:25] LABS: Platelet Count (auto) 11 10^3/uL (140-450)
[2017-10-03] MEDS: LEVOFLOXACIN 750MG 150 ML IV SCH (11:31)
[2017-10-03] MEDS: SODIUM CHLOR 0.9% PF (SALINE LOCK) 10ML VIAL IV SCH ×2 (11:31→21:29)
[2017-10-03] MEDS: MULTIPLE VITAMINS W/ MINERALS TAB PO SCH (11:32)
[2017-10-03] MEDS: HCTZ 25 MG TAB PO SCH (11:32)
[2017-10-03] MEDS: FAMOTIDINE 20 MG TAB PO SCH ×2 (11:32→21:30)
[2017-10-03] MEDS: ASCORBIC ACID 500 MG TAB PO SCH ×2 (11:33→21:30)
[2017-10-03] MEDS: ENALAPRIL MALEATE 2.5 MG TAB PO SCH (11:34)
[2017-10-03] MEDS: METOPROLOL SUCCINATE XL 50 MG TAB PO SCH (11:34)
[2017-10-03] MEDS: PRO-STAT 64 30ML PO SCH ×2 (11:41→18:59)
[2017-10-03 13:00] VITALS: BP 136/95
[2017-10-03 17:00] VITALS: BP 139/70
[2017-10-03] MEDS: MEPERIDINE HCL (25 MG/ML) 1ML VIAL IV PRN (19:52)
[2017-10-03 21:30] VITALS: BP 143/84
[2017-10-03] MEDS: TEMAZEPAM 15 MG CAP PO PRN (21:30)
[2017-10-04] MEDS: MEPERIDINE HCL (25 MG/ML) 1ML VIAL IV PRN ×4 (01:57→21:24)
[2017-10-04] MEDS: VANCOMYCIN 1GM/250ML 250 ML IV SCH ×3 (04:10→20:30)
[2017-10-04 05:00] VITALS: BP 138/82
[2017-10-04] MEDS: METHOCARBAMOL 500 MG TAB PO SCH ×5 (05:53→21:23)
[2017-10-04] MEDS: SODIUM CHLORIDE 0.9% 1,000 ML IV SCH ×2 (05:53→20:48)
[2017-10-04] MEDS: CARISOPRODOL 350 MG TAB PO SCH ×3 (05:53→18:46)
[2017-10-04] MEDS: PRO-STAT 64 30ML PO SCH ×2 (08:17→18:00)
[2017-10-04 08:44] LABS: Eosinophils # (auto) 0.2 uL; Lymphocytes # (auto) 1.4 uL; Monocytes # (auto) 0.4 uL; Nucleated Red Blood Cells % 0.2 %
[2017-10-04 08:46] LABS: Basophils # (auto) 0 uL; Basophils % (auto) 0.2 % (0.0-2.0); Eosinophils % (auto) 4.1 % (0.0-7.0); Hematocrit 35.9 % (41.0-53.0); Hemoglobin 12.4 g/dL (13.5-17.5); Mean Corpuscular Hemoglobin 33.6 pg (28.0-32.0); Mean Corpuscular Hgb Conc. 34.5 g/dL (32.0-36.0); Mean Corpuscular Volume 97.4 fL (80.0-100.0); Monocytes % (auto) 9.4 % (0.0-12.0); Neutrophils # (auto) 2.4 uL; Neutrophils % (auto) 54.3 % (37.0-80.0); Red Blood Cells 3.68 10^6/uL (4.5-5.90); Red Cell Distribution Width 14.3 % (11.8-14.3); White Blood Cell 4.4 10^3/uL (4.4-10.8)
[2017-10-04 08:57] LABS: Albumin 2.1 g/dL (3.4-5.0); BUN/Creatinine Ratio 21.2; Calcium 8.1 mg/dL (8.5-10.1); Potassium 3.6 mmol/L (3.5-5.1)
[2017-10-04 09:00] LABS: Bilirubin, Total 0.6 mg/dL (0.2-1.0); Total Protein 6.2 g/dL (6.4-8.2)
[2017-10-04 09:06] VITALS: BP 149/103
[2017-10-04] MEDS: SODIUM CHLOR 0.9% PF (SALINE LOCK) 10ML VIAL IV SCH ×2 (09:36→21:24)
[2017-10-04] MEDS: FAMOTIDINE 20 MG TAB PO SCH ×2 (09:37→21:23)
[2017-10-04] MEDS: ASCORBIC ACID 500 MG TAB PO SCH ×2 (09:37→21:24)
[2017-10-04] MEDS: MULTIPLE VITAMINS W/ MINERALS TAB PO SCH (09:37)
[2017-10-04 09:38] LABS: Platelet Count (auto) 12 10^3/uL (140-450)
[2017-10-04] MEDS: HCTZ 25 MG TAB PO SCH (09:41)
[2017-10-04 09:48] LABS: Hepatitis B Surface Antibody Negative
[2017-10-04] MEDS: ENALAPRIL MALEATE 2.5 MG TAB PO SCH (09:49)
[2017-10-04] MEDS: METOPROLOL SUCCINATE XL 50 MG TAB PO SCH (09:53)
[2017-10-04] MEDS: ENOXAPARIN SOD 40 MG/0.4 ML SYRINGE SC SCH ×2 (09:55→10:00)
[2017-10-04] MEDS: LEVOFLOXACIN 750MG 150 ML IV SCH (09:57)
[2017-10-04 09:59] LABS: Hepatitis B Surface Antigen Negative (Negative)
[2017-10-04 12:32] VITALS: BP 153/87
[2017-10-04] MEDS: methylPREDNISolone SOD SUCC 125 MG/2 ML VL IV SCH ×2 (14:29→21:23)
[2017-10-04 17:14] VITALS: BP 135/81
[2017-10-04 22:00] VITALS: BP 137/73
[2017-10-05] MEDS: CARISOPRODOL 350 MG TAB PO SCH ×4 (00:27→18:00)
[2017-10-05] MEDS: OXYCODONE W/ ACETAMINOPHEN 5/325MG TABLET PO PRN ×2 (00:45→05:28)
[2017-10-05] MEDS: VANCOMYCIN 1GM/250ML 250 ML IV SCH ×2 (03:51→12:41)
[2017-10-05] MEDS: MEPERIDINE HCL (25 MG/ML) 1ML VIAL IV PRN ×3 (03:52→17:09)
[2017-10-05 05:20] VITALS: BP 125/88
[2017-10-05] MEDS: METHOCARBAMOL 500 MG TAB PO SCH ×3 (05:27→18:00)
[2017-10-05] MEDS: methylPREDNISolone SOD SUCC 125 MG/2 ML VL IV SCH ×2 (05:27→14:00)
[2017-10-05 06:32] LABS: Basophils # (auto) 0 uL; Basophils % (auto) 0.2 % (0.0-2.0); Eosinophils # (auto) 0 uL; Hematocrit 37.3 % (41.0-53.0); Monocytes # (auto) 0.2 uL; Neutrophils % (auto) 88.2 % (37.0-80.0)
[2017-10-05 06:35] LABS: Hemoglobin 12.8 g/dL (13.5-17.5); Lymphocytes % (auto) 9.9 % (10.0-50.0); Mean Corpuscular Hemoglobin 33.7 pg (28.0-32.0); Mean Corpuscular Hgb Conc. 34.5 g/dL (32.0-36.0); Mean Corpuscular Volume 97.8 fL (80.0-100.0); Monocytes % (auto) 1.7 % (0.0-12.0); Neutrophils # (auto) 9.2 uL; Nucleated Red Blood Cells % 0.2 %; Red Blood Cells 3.81 10^6/uL (4.5-5.90); Red Cell Distribution Width 14.5 % (11.8-14.3); White Blood Cell 10.4 10^3/uL (4.4-10.8)
[2017-10-05 06:41] LABS: Platelet Count (auto) 17 10^3/uL (140-450)
[2017-10-05 06:48] LABS: Albumin 2.3 g/dL (3.4-5.0); BUN/Creatinine Ratio 27.6; Bilirubin, Total 0.6 mg/dL (0.2-1.0); Calcium 8.1 mg/dL (8.5-10.1); Potassium 3.8 mmol/L (3.5-5.1)
[2017-10-05] MEDS: PRO-STAT 64 30ML PO SCH ×2 (08:00→18:00)
[2017-10-05 09:03] VITALS: BP 124/88
[2017-10-05] MEDS: LEVOFLOXACIN 750MG 150 ML IV SCH (09:51)
[2017-10-05] MEDS: METOPROLOL SUCCINATE XL 50 MG TAB PO SCH (09:53)
[2017-10-05] MEDS: MULTIPLE VITAMINS W/ MINERALS TAB PO SCH (09:53)
[2017-10-05] MEDS: FAMOTIDINE 20 MG TAB PO SCH (09:53)
[2017-10-05] MEDS: ENALAPRIL MALEATE 2.5 MG TAB PO SCH (09:54)
[2017-10-05] MEDS: ASCORBIC ACID 500 MG TAB PO SCH (09:54)
[2017-10-05] MEDS: HCTZ 25 MG TAB PO SCH (09:54)
[2017-10-05] MEDS: SODIUM CHLORIDE 0.9% 1,000 ML IV SCH (09:56)
[2017-10-05] MEDS: SODIUM CHLOR 0.9% PF (SALINE LOCK) 10ML VIAL IV SCH (09:56)
[2017-10-05 13:00] VITALS: BP 115/77
[2017-10-05 16:42] VITALS: BP 139/80
== END 2017-10-05 19:33 | DRG 720 ==
LOC: ER 23:27 → OVERFLOW 23:28 → CENTRAL 09-19 18:07
PROVIDERS: ADMIT Nurse Practitioner; ATTEND Internal Medicine
PROC: 02HV33Z Insertion of Infusion Device into Superior Vena Cava, Percutaneous Approach (ICD-10-PCS; principal; 2017-10-01)
DX: A41.9 Sepsis, unspecified organism (principal); E43 Unspecified severe protein-calorie malnutrition; D69.3 Immune thrombocytopenic purpura; I11.0 Hypertensive heart disease with heart failure; I50.9 Heart failure, unspecified; D69.59 Other secondary thrombocytopenia; L03.115 Cellulitis of right lower limb; J45.909 Unspecified asthma, uncomplicated; N28.9 Disorder of kidney and ureter, unspecified; M19.90 Unspecified osteoarthritis, unspecified site; E87.6 Hypokalemia; F15.10 Other stimulant abuse, uncomplicated; T63.331A Toxic effect of venom of brown recluse spider, accidental (unintentional), initial encounter; T36.0X5A Adverse effect of penicillins, initial encounter; Z72.0 Tobacco use; Z82.49 Family history of ischemic heart disease and other diseases of the circulatory system; Z83.3 Family history of diabetes mellitus; Y92.89 Other specified places as the place of occurrence of the external cause; Z88.8 Allergy status to other drugs, medicaments and biological substances; Z91.041 Radiographic dye allergy status; Z68.23 Body mass index [BMI] 23.0-23.9, adult
CPT/HCPCS: 36415; 36569; 71045; 73721; 80048; 80053; 80202; 80307; 81001; 83605; 83615; 83880; 84484; 85025; 85610; 85730; 86703; 86706; 86803; 87040; 87205; 87340; 93005; 93926; 93971; 96365; 96366; 96368; 96372; 96375; 96376; J0696; J1885; J1956; J2405; J2543; J7060

== ENCOUNTER 2017-10-19 12:04 | Inpatient (IN) | payer MEDICAID ==
[~2017-10-19] VITALS: Ht 175.3 cm; Wt 78.6 kg
[~2017-10-19 12:04] MED LIST changes: +POTA10TA51 PO
[2017-10-19] MEDS ORDERED: HYDROmorphone HCL 2 MG/ML VL IV ONE (12:45)
[2017-10-19] MEDS ORDERED: ONDANSETRON HCL 4 MG/2 ML VIAL IV ONE (12:45)
[2017-10-19 13:09] LABS: Basophils # (auto) 0.1 uL; Basophils % (auto) 3.1 % (0.0-2.0); Eosinophils # (auto) 0.1 uL; Eosinophils % (auto) 2.5 % (0.0-7.0); Hematocrit 36.7 % (41.0-53.0); Hemoglobin 12.4 g/dL (13.5-17.5); Lymphocytes # (auto) 1.4 uL; Lymphocytes % (auto) 31.9 % (10.0-50.0); Mean Corpuscular Hemoglobin 33.3 pg (28.0-32.0); Mean Corpuscular Hgb Conc. 33.8 g/dL (32.0-36.0); Mean Corpuscular Volume 98.4 fL (80.0-100.0); Monocytes # (auto) 0.5 uL; Monocytes % (auto) 10.4 % (0.0-12.0); Neutrophils # (auto) 2.3 uL; Neutrophils % (auto) 52.1 % (37.0-80.0); Nucleated Red Blood Cells % 0.2 %; Platelet Count (auto) 104 10^3/uL (140-450); Red Blood Cells 3.73 10^6/uL (4.5-5.90); Red Cell Distribution Width 15.7 % (11.8-14.3); White Blood Cell 4.4 10^3/uL (4.4-10.8)
[2017-10-19] MEDS ORDERED: HYDROmorphone HCL 2 MG/ML VL ONE (13:09)
[2017-10-19 13:21] LABS: INR 1.04 (0.9-1.15); Partial Thromboplastin Time 29.9 sec (22.64-33.71); Prothrombin Time 11.3 sec (9.37-12.3)
[2017-10-19 13:23] LABS: Albumin 2.6 g/dL (3.4-5.0); BUN/Creatinine Ratio 22.6; Calcium 8.4 mg/dL (8.5-10.1); Potassium 3.6 mmol/L (3.5-5.1)
[2017-10-19 13:30] LABS: Bilirubin, Total 0.9 mg/dL (0.2-1.0); Total Protein 6.7 g/dL (6.4-8.2)
[2017-10-19] MEDS ORDERED: cefTRIAXone 1GM/10ml IVPUSH 10 ML IV ONE (14:30)
[2017-10-19] MEDS ORDERED: VANCOMYCIN PER PHARMACY 0 MG IV SCH (15:45)
[2017-10-19] MEDS ORDERED: LACTULOSE 20Gm/30ML SOLN PO PRN (15:45)
[2017-10-19] MEDS ORDERED: ACETAMINOPHEN 500 MG TAB PO PRN (15:45)
[2017-10-19] MEDS ORDERED: PROMETHAZINE HCL 25 MG/ML 1ML IV PRN (15:45)
[2017-10-19] MEDS ORDERED: TEMAZEPAM 15 MG CAP PO PRN (15:45)
[2017-10-19] MEDS ORDERED: MORPHINE SULFATE 4 MG/ML SYR/VIAL IV PRN (15:45)
[2017-10-19] MEDS ORDERED: ALBUTEROL SULF 2.5 MG/0.5ML(0.5%) NEB SOLN NEB PRN (15:45)
[2017-10-19] MEDS ORDERED: LORazepam 0.5 MG TAB PO PRN (15:45)
[2017-10-19] MEDS ORDERED: PIPERACILLIN-TAZOB 3.375GM 50 ML IV ONE (15:45)
[2017-10-19] MEDS ORDERED: NITROGLYCERIN 0.4 MG SL TAB SL PRN (15:45)
[2017-10-19] MEDS ORDERED: LIDOCAINE 1% HCL (LOCAL ANESTH.) INJ 20ML MDV ID ONE (17:00)
[2017-10-19] MEDS ORDERED: VANCOMYCIN 1GM/250ML 250 ML IV ONE (17:00)
[2017-10-19] MEDS: SODIUM CHLORIDE 0.9% 1,000 ML IV SCH (17:50)
[2017-10-19 19:38] VITALS: BP 150/81
[2017-10-19 20:00] VITALS: BP 147/97
[2017-10-19 22:00] VITALS: BP 147/97
[2017-10-19] MEDS: SODIUM CHLOR 0.9% PF (SALINE LOCK) 10ML VIAL IV SCH (22:10)
[2017-10-19] MEDS: MORPHINE SULFATE 4 MG/ML SYR/VIAL IV PRN (22:13)
[2017-10-19] MEDS: PIPERACILLIN-TAZOB 3.375GM 50 ML IV SCH (23:46)
[2017-10-20] MEDS: SODIUM CHLORIDE 0.9% 1,000 ML IV SCH ×2 (01:01→09:52)
[2017-10-20] MEDS: MORPHINE SULFATE 4 MG/ML SYR/VIAL IV PRN ×4 (04:42→22:22)
[2017-10-20 05:00] VITALS: BP 136/69
[2017-10-20] MEDS: VANCOMYCIN 1GM/250ML 250 ML IV SCH ×2 (05:01→17:11)
[2017-10-20] MEDS: PIPERACILLIN-TAZOB 3.375GM 50 ML IV SCH ×3 (05:46→17:12)
[2017-10-20 07:36] LABS: Bilirubin, Total 1.2 mg/dL (0.2-1.0); Calcium 7.5 mg/dL (8.5-10.1); Potassium 3.6 mmol/L (3.5-5.1); Total Protein 5.7 g/dL (6.4-8.2)
[2017-10-20 08:00] VITALS: BP 105/60
[2017-10-20 08:22] VITALS: BP 105/60
[2017-10-20] MEDS: SODIUM CHLOR 0.9% PF (SALINE LOCK) 10ML VIAL IV SCH (09:52)
[2017-10-20 11:48] VITALS: BP 150/91
[2017-10-20] MEDS: HCTZ 25 MG TAB PO SCH (13:52)
[2017-10-20] MEDS: ENALAPRIL MALEATE 2.5 MG TAB PO SCH (13:53)
[2017-10-20] MEDS: METOPROLOL TARTRATE 25 MG TAB PO SCH ×2 (13:54→22:30)
[2017-10-20] MEDS: SULFAMETHOX W/TRIMETH(800/160MG) DS TAB PO SCH ×2 (14:07→22:21)
[2017-10-20] MEDS: MULTIPLE VITAMIN TAB PO SCH (15:55)
[2017-10-20 16:54] VITALS: BP 133/78
[2017-10-20] MEDS: HYDROcodone-ACET 5/325MG TAB PO PRN (17:03)
[2017-10-20] MEDS: PRO-STAT 64 30ML PO SCH (17:12)
[2017-10-20 22:00] VITALS: BP 127/77
[2017-10-20] MEDS: ASCORBIC ACID 500 MG TAB PO SCH (22:21)
[2017-10-21] MEDS: SODIUM CHLOR 0.9% PF (SALINE LOCK) 10ML VIAL IV SCH ×3 (01:55→23:43)
[2017-10-21] MEDS: PIPERACILLIN-TAZOB 3.375GM 50 ML IV SCH (01:57)
[2017-10-21] MEDS: METOPROLOL TARTRATE 25 MG TAB PO SCH ×2 (01:57→08:56)
[2017-10-21] MEDS: SODIUM CHLORIDE 0.9% 1,000 ML IV SCH ×2 (02:00→08:58)
[2017-10-21] MEDS: MORPHINE SULFATE 4 MG/ML SYR/VIAL IV PRN ×4 (02:58→20:09)
[2017-10-21 05:00] VITALS: BP 114/59
[2017-10-21] MEDS: HYDROcodone-ACET 5/325MG TAB PO PRN (06:00)
[2017-10-21] MEDS: VANCOMYCIN 1GM/250ML 250 ML IV SCH (06:00)
[2017-10-21 06:40] LABS: Hemoglobin 10.2 g/dL (13.5-17.5); White Blood Cell 3.1 10^3/uL (4.4-10.8)
[2017-10-21 06:42] LABS: Hematocrit 29.6 % (41.0-53.0); Mean Corpuscular Hgb Conc. 34.4 g/dL (32.0-36.0); Mean Corpuscular Volume 98.7 fL (80.0-100.0); Platelet Count (auto) 46 10^3/uL (140-450); Red Cell Distribution Width 15.2 % (11.8-14.3)
[2017-10-21 06:50] LABS: Band Neutrophils % (manual) 0; Basophils % (manual) 0 (0.0-2.0); Blast Cells 0; Metamyelocytes % 0; Myelocytes % 0; Promyelocytes % 0; Reactive Lymphocytes 0
[2017-10-21 06:58] LABS: BUN/Creatinine Ratio 18.5; Calcium 6.7 mg/dL (8.5-10.1); Potassium 3.6 mmol/L (3.5-5.1)
[2017-10-21 08:00] VITALS: BP 127/77
[2017-10-21] MEDS: PRO-STAT 64 30ML PO SCH ×2 (08:00→17:45)
[2017-10-21 08:42] VITALS: BP 127/77
[2017-10-21] MEDS: SULFAMETHOX W/TRIMETH(800/160MG) DS TAB PO SCH ×2 (08:55→23:37)
[2017-10-21] MEDS: ASCORBIC ACID 500 MG TAB PO SCH ×2 (08:56→23:36)
[2017-10-21] MEDS: HCTZ 25 MG TAB PO SCH (08:57)
[2017-10-21] MEDS: MULTIPLE VITAMIN TAB PO SCH (08:57)
[2017-10-21] MEDS: ENALAPRIL MALEATE 2.5 MG TAB PO SCH (08:57)
[2017-10-21 09:21] LABS: Lymphocytes % (manual) 33 (10.0-50.0)
[2017-10-21 09:22] LABS: Eosinophils % (manual) 8 (0-7); Monocytes % (manual) 9 (0-12)
[2017-10-21] MEDS: PROPRANOLOL HCL 20 MG TAB PO SCH ×2 (14:51→23:36)
[2017-10-21 17:33] VITALS: BP 127/78
[2017-10-21 22:00] VITALS: BP 133/72
[2017-10-22 05:00] VITALS: BP 119/81
[2017-10-22] MEDS: MORPHINE SULFATE 4 MG/ML SYR/VIAL IV PRN ×2 (05:45)
[2017-10-22 06:43] LABS: Basophils # (auto) 0.1 uL; Basophils % (auto) 1.3 % (0.0-2.0); Hematocrit 33.8 % (41.0-53.0); Monocytes # (auto) 0.5 uL; Neutrophils # (auto) 1.9 uL; White Blood Cell 4.3 10^3/uL (4.4-10.8)
[2017-10-22 06:45] LABS: Eosinophils # (auto) 0.4 uL; Eosinophils % (auto) 8.4 % (0.0-7.0); Hemoglobin 11.8 g/dL (13.5-17.5); Lymphocytes # (auto) 1.4 uL; Lymphocytes % (auto) 33.7 % (10.0-50.0); Mean Corpuscular Hemoglobin 34.4 pg (28.0-32.0); Mean Corpuscular Volume 98.2 fL (80.0-100.0); Monocytes % (auto) 11.5 % (0.0-12.0); Neutrophils % (auto) 45.1 % (37.0-80.0); Nucleated Red Blood Cells % 0.1 %; Platelet Count (auto) 57 10^3/uL (140-450); Red Blood Cells 3.44 10^6/uL (4.5-5.90); Red Cell Distribution Width 15.1 % (11.8-14.3)
[2017-10-22 07:03] LABS: Calcium 8.1 mg/dL (8.5-10.1); Potassium 3.6 mmol/L (3.5-5.1)
[2017-10-22 07:05] LABS: BUN/Creatinine Ratio 22.8
[2017-10-22 08:39] VITALS: BP 141/90
[2017-10-22] MEDS: PROPRANOLOL HCL 20 MG TAB PO SCH (10:24)
[2017-10-22] MEDS: SULFAMETHOX W/TRIMETH(800/160MG) DS TAB PO SCH (10:25)
[2017-10-22] MEDS: ENALAPRIL MALEATE 2.5 MG TAB PO SCH (10:25)
[2017-10-22] MEDS: PRO-STAT 64 30ML PO SCH (10:25)
[2017-10-22] MEDS: MULTIPLE VITAMIN TAB PO SCH (10:25)
[2017-10-22] MEDS: SODIUM CHLOR 0.9% PF (SALINE LOCK) 10ML VIAL IV SCH (10:25)
[2017-10-22] MEDS: ASCORBIC ACID 500 MG TAB PO SCH (10:26)
[2017-10-22] MEDS ORDERED: PRO20T PO (11:11)
[2017-10-22] MEDS ORDERED: ASCO500T11 PO (11:11)
[2017-10-22] MEDS ORDERED: SULF-92 PO (11:11)
[2017-10-22 13:16] VITALS: BP 152/94
== END 2017-10-22 13:30 | disposition home or self-care (01) | DRG 383 ==
LOC: ER 12:04 → TELE 12:05 → TELE-CENTR 19:58
PROVIDERS: ADMIT Internal Medicine; ATTEND Internal Medicine
PROC: 02HV33Z Insertion of Infusion Device into Superior Vena Cava, Percutaneous Approach (ICD-10-PCS; principal; 2017-10-19)
DX: L03.115 Cellulitis of right lower limb (principal); K76.6 Portal hypertension; D69.6 Thrombocytopenia, unspecified; E44.0 Moderate protein-calorie malnutrition; S81.801A Unspecified open wound, right lower leg, initial encounter; K74.60 Unspecified cirrhosis of liver; B19.20 Unspecified viral hepatitis C without hepatic coma; D72.819 Decreased white blood cell count, unspecified; I10 Essential (primary) hypertension; K59.00 Constipation, unspecified; F41.9 Anxiety disorder, unspecified; G47.00 Insomnia, unspecified; J45.909 Unspecified asthma, uncomplicated; M19.90 Unspecified osteoarthritis, unspecified site; Z82.3 Family history of stroke; Z82.49 Family history of ischemic heart disease and other diseases of the circulatory system; Z83.3 Family history of diabetes mellitus; Z87.891 Personal history of nicotine dependence; Z88.6 Allergy status to analgesic agent; Z91.041 Radiographic dye allergy status; Z79.899 Other long term (current) drug therapy; Y93.89 Activity, other specified; Y92.89 Other specified places as the place of occurrence of the external cause; Y99.8 Other external cause status; W64.XXXA Exposure to other animate mechanical forces, initial encounter
CPT/HCPCS: 36415; 36569; 71045; 73590; 80048; 80053; 80202; 82550; 83605; 83735; 85007; 85025; 85027; 85610; 85652; 85730; 87040; 87081; 87205; 93971; 94761; 96365; 96368; 96375; J2405; J2543

== ENCOUNTER 2020-09-08 21:41 | Emergency (ER) | payer MEDICAID ==
[~2020-09-08] VITALS: Ht 167.6 cm; Wt 81.6 kg
[~2020-09-08 21:41] MED LIST changes: +ASCO500T11 PO; -ENAL2.5T; +ENAL2.5T7; -HYDR-4683; -METO50TA15; -POTA10TA51 PO
[2020-09-08 22:36] LABS: Eosinophils # (auto) 0 10 ^3/uL (0-0.8); Lymphocytes # (auto) 1.9 10 ^3/uL (0.4-5.4); Platelet Count (auto) 97 10^3/uL (140-450)
[2020-09-08 22:38] LABS: Basophils # (auto) 0.1 10 ^3/uL (0-0.2); Basophils % (auto) 1.3 % (0.0-2.0); Eosinophils % (auto) 0.5 % (0.0-7.0); Hematocrit 41.9 % (41.0-53.0); Hemoglobin 14.6 g/dL (13.5-17.5); Lymphocytes % (auto) 37.8 % (10.0-50.0); Mean Corpuscular Hemoglobin 34.5 pg (28.0-32.0); Mean Corpuscular Hgb Conc. 34.8 g/dL (32.0-36.0); Monocytes # (auto) 0.3 10 ^3/uL (0-1.3); Monocytes % (auto) 6.2 % (0.0-12.0); Neutrophils # (auto) 2.7 10 ^3/uL (1.6-8.6); Neutrophils % (auto) 54.2 % (37.0-80.0); Nucleated Red Blood Cells % 0.2 %; Red Blood Cells 4.24 10^6/uL (4.5-5.90); Red Cell Distribution Width 14.3 % (11.8-14.3); White Blood Cell 5.1 10^3/uL (4.4-10.8)
[2020-09-08 22:53] LABS: Albumin 2.7 g/dL (3.4-5.0); Calcium 8.2 mg/dL (8.5-10.1); Salicylate < 1.7 mg/dL (2.8-20.0)
[2020-09-08 22:56] LABS: BUN/Creatinine Ratio 11.5; Bilirubin, Total 0.9 mg/dL (0.2-1.0); Total Protein 8.2 g/dL (6.4-8.2)
[2020-09-08 23:13] LABS: Acetaminophen < 2.0 ug/mL (10-30); Potassium 2.9 mmol/L (3.5-5.1)
[2020-09-08] MEDS ORDERED: levETIRAcetam 500 MG/5ML INJ IV ONE (23:35)
[2020-09-09] MEDS ORDERED: PROPOFOL 100 ML IV ONE (00:20)
[2020-09-09] MEDS ORDERED: ETOMIDATE (2MG/ML) 20ML VIAL IV ONE ×2 (00:20→00:30)
[2020-09-09] MEDS ORDERED: SUCCINYLCHOLINE CHLORIDE 20 MG/ML 10ML VIAL IV ONE ×2 (00:21→00:30)
[2020-09-09] MEDS ORDERED: PROPOFOL 100 ML IV SCH (00:30)
[2020-09-09 01:04] LABS: INR 1.18 (0.9-1.15)
[2020-09-09 01:10] VITALS: BP 157/106
[2020-09-09] MEDS ORDERED: fentaNYL Drip 2500mCg/250mlNS 250 ML IV ONE (01:20)
== END 2020-09-09 01:48 | disposition home or self-care (01) ==
LOC: EDBD 21:41 → ER 21:44
DX: I61.1 Nontraumatic intracerebral hemorrhage in hemisphere, cortical (principal); R22.0 Localized swelling, mass and lump, head; R41.82 Altered mental status, unspecified; I11.0 Hypertensive heart disease with heart failure; I50.9 Heart failure, unspecified; Z79.899 Other long term (current) drug therapy; Z20.828 Contact with and (suspected) exposure to other viral communicable diseases; Z87.891 Personal history of nicotine dependence
CPT/HCPCS: 31500; 36415; 70450; 71045; 80053; 80320; 80329; 83605; 83880; 84484; 85025; 85610; 85730; 87040; 87077; 87186; 87426; 93005; 96365; 99291; C9803; J0330; J1953; J2704; J7030; J7060; U0003

== ENCOUNTER 2020-11-17 09:20 | Emergency (ER) | payer MEDICAID ==
[~2020-11-17] VITALS: Ht 175.3 cm; Wt 54.4 kg
[2020-11-17] MEDS ORDERED: SODIUM CHLORIDE 0.9% 500 ML IVB ONE (11:00)
[2020-11-17] MEDS ORDERED: SODIUM CHLORIDE 0.9% 1,000 ML IV ONE (11:00)
[2020-11-17 11:15] VITALS: BP 113/75
[2020-11-17 11:30] LABS: Urine Bacteria MANY /hpf (None Seen); Urine Blood 3+ /uL (Negative); Urine Mucus FEW (None Seen); Urine Specific Gravity 1.013 (1.001-1.035); Urine WBC 678 /hpf (0 - 3); Urine WBC Clumps PRESENT /hpf (None Seen)
[2020-11-17 11:49] LABS: Alcohol, Urine < 3.0 mg/dL (0-10); Amphetamine Screen, Urine POSITIVE (NEGATIVE); Barbiturate Scree,Urine NEGATIVE (NEGATIVE); Benzodiazephine Screen, Urine NEGATIVE (NEGATIVE); Cannabinoid Screen, Urine NEGATIVE (NEGATIVE); Cocaine Screen, Urine NEGATIVE (NEGATIVE); Opiate Scree,Urine NEGATIVE (NEGATIVE)
[2020-11-17 12:02] LABS: Phencyclidine Screen, Urine NEGATIVE (NEGATIVE)
== END 2020-11-17 11:46 | disposition left against medical advice (07) ==
LOC: ER 09:20
DX: Z45.2 Encounter for adjustment and management of vascular access device (principal); T83.098A Other mechanical complication of other urinary catheter, initial encounter; G40.909 Epilepsy, unspecified, not intractable, without status epilepticus; I87.2 Venous insufficiency (chronic) (peripheral); F17.210 Nicotine dependence, cigarettes, uncomplicated; M19.90 Unspecified osteoarthritis, unspecified site; J45.909 Unspecified asthma, uncomplicated; I11.0 Hypertensive heart disease with heart failure; I50.9 Heart failure, unspecified; Z95.0 Presence of cardiac pacemaker; Z95.810 Presence of automatic (implantable) cardiac defibrillator
CPT/HCPCS: 80307; 81001

== ENCOUNTER 2020-12-03 16:50 | Emergency (ER) | payer MEDICAID ==
[~2020-12-03] VITALS: Ht 175.3 cm; Wt 74.8 kg
[2020-12-03 16:52] VITALS: BP 108/74
== END 2020-12-03 21:48 | disposition left against medical advice (07) ==
LOC: ER 16:50
DX: Z45.2 Encounter for adjustment and management of vascular access device (principal); Z53.21 Procedure and treatment not carried out due to patient leaving prior to being seen by health care provider

== ENCOUNTER 2020-12-07 12:40 | Emergency (ER) | payer MEDICAID ==
[~2020-12-07] VITALS: Ht 175.3 cm; Wt 76.2 kg
[2020-12-07 12:42] VITALS: BP 144/89
== END 2020-12-07 12:59 | disposition home or self-care (01) ==
LOC: ER 12:40
DX: Z45.2 Encounter for adjustment and management of vascular access device (principal); I11.0 Hypertensive heart disease with heart failure; I50.9 Heart failure, unspecified

== ENCOUNTER 2021-01-09 20:23 | Emergency (ER) | payer MEDICAID ==
[~2021-01-09] VITALS: Ht 172.7 cm; Wt 72.6 kg
[2021-01-09 20:56] LABS: Basophils # (auto) 0.1 10 ^3/uL (0-0.2); Basophils % (auto) 0.7 % (0.0-2.0); Eosinophils # (auto) 0.1 10 ^3/uL (0-0.8); Eosinophils % (auto) 1.2 % (0.0-7.0); Hematocrit 45.4 % (41.0-53.0); Hemoglobin 15.4 g/dL (13.5-17.5); Lymphocytes # (auto) 4.5 10 ^3/uL (0.4-5.4); Lymphocytes % (auto) 46.9 % (10.0-50.0); Mean Corpuscular Hemoglobin 33.9 pg (28.0-32.0); Mean Corpuscular Hgb Conc. 33.9 g/dL (32.0-36.0); Mean Corpuscular Volume 99.9 fL (80.0-100.0); Monocytes # (auto) 1.2 10 ^3/uL (0-1.3); Neutrophils # (auto) 3.6 10 ^3/uL (1.6-8.6); Neutrophils % (auto) 38.2 % (37.0-80.0); Nucleated Red Blood Cells % 0.1 %; Red Blood Cells 4.54 10^6/uL (4.5-5.90); Red Cell Distribution Width 14.6 % (11.8-14.3); White Blood Cell 9.5 10^3/uL (4.4-10.8)
[2021-01-09 21:17] LABS: Albumin 3.2 g/dL (3.4-5.0); BUN/Creatinine Ratio 9.9; Calcium 8.5 mg/dL (8.5-10.1); Potassium 3.1 mmol/L (3.5-5.1)
[2021-01-09 21:20] LABS: Bilirubin, Total 1.1 mg/dL (0.2-1.0); Total Protein 7.7 g/dL (6.4-8.2)
[2021-01-10] MEDS ORDERED: levETIRAcetam 500 MG/5ML INJ IV ONE (01:09)
[2021-01-10 03:09] VITALS: BP 138/89
[2021-01-10] MEDS ORDERED: POTASSIUM CHL 20 Meq TABLET PO ONE (04:00)
== END 2021-01-10 04:41 | disposition home or self-care (01) ==
LOC: EDBD 20:23 → ER 20:26
DX: G40.909 Epilepsy, unspecified, not intractable, without status epilepticus (principal); J45.909 Unspecified asthma, uncomplicated; I11.0 Hypertensive heart disease with heart failure; I50.9 Heart failure, unspecified; F17.210 Nicotine dependence, cigarettes, uncomplicated; Z88.6 Allergy status to analgesic agent; Z79.899 Other long term (current) drug therapy; Z95.0 Presence of cardiac pacemaker
CPT/HCPCS: 36415; 80053; 85025; 93005; 96365; 99285; J1953; J7060

== ENCOUNTER 2021-08-02 18:06 | Emergency (ER) | payer MEDICAID ==
[~2021-08-02] VITALS: Ht 172.7 cm; Wt 80.7 kg
[2021-08-02 18:07] VITALS: BP 150/96
[2021-08-02 19:16] LABS: Alcohol, Urine < 3.0 mg/dL (0-10); Amphetamine Screen, Urine POSITIVE (NEGATIVE); Barbiturate Scree,Urine NEGATIVE (NEGATIVE); Benzodiazephine Screen, Urine NEGATIVE (NEGATIVE); Cannabinoid Screen, Urine NEGATIVE (NEGATIVE); Cocaine Screen, Urine NEGATIVE (NEGATIVE); Opiate Scree,Urine NEGATIVE (NEGATIVE); Phencyclidine Screen, Urine NEGATIVE (NEGATIVE)
[2021-08-02 19:23] LABS: Urine Bacteria NONE SEEN /hpf (None Seen); Urine Blood 1+ /uL (Negative); Urine Specific Gravity 1.008 (1.001-1.035); Urine WBC 1 /hpf (0 - 3)
[2021-08-02 19:57] LABS: Basophils # (auto) 0.1 10 ^3/uL (0-0.2); Basophils % (auto) 0.9 % (0.0-2.0); Eosinophils # (auto) 0.1 10 ^3/uL (0-0.8); Eosinophils % (auto) 0.9 % (0.0-7.0); Hematocrit 36.9 % (41.0-53.0); Hemoglobin 12.6 g/dL (13.5-17.5); Lymphocytes # (auto) 1.5 10 ^3/uL (0.4-5.4); Lymphocytes % (auto) 22.4 % (10.0-50.0); Mean Corpuscular Hemoglobin 33.5 pg (28.0-32.0); Mean Corpuscular Hgb Conc. 34.2 g/dL (32.0-36.0); Monocytes # (auto) 0.6 10 ^3/uL (0-1.3); Monocytes % (auto) 8.5 % (0.0-12.0); Neutrophils # (auto) 4.6 10 ^3/uL (1.6-8.6); Neutrophils % (auto) 67.3 % (37.0-80.0); Nucleated Red Blood Cells % 0.1 %; Red Blood Cells 3.77 10^6/uL (4.5-5.90); Red Cell Distribution Width 13.7 % (11.8-14.3); White Blood Cell 6.8 10^3/uL (4.4-10.8)
[2021-08-02 20:19] LABS: Albumin 1.8 g/dL (3.4-5.0); Calcium 7.5 mg/dL (8.5-10.1); Potassium 3.6 mmol/L (3.5-5.1)
[2021-08-02 20:27] LABS: BUN/Creatinine Ratio 25.4; Bilirubin, Total 1.2 mg/dL (0.2-1.0); Total Protein 6.5 g/dL (6.4-8.2)
== END 2021-08-02 23:34 | disposition left against medical advice (07) ==
LOC: ER 18:07
DX: R07.89 Other chest pain (principal); R53.1 Weakness; R11.2 Nausea with vomiting, unspecified; R19.7 Diarrhea, unspecified; R50.9 Fever, unspecified; R51.9 Headache, unspecified; I11.0 Hypertensive heart disease with heart failure; I50.9 Heart failure, unspecified; J45.909 Unspecified asthma, uncomplicated; M19.90 Unspecified osteoarthritis, unspecified site; Z95.0 Presence of cardiac pacemaker; Z79.899 Other long term (current) drug therapy; Z88.6 Allergy status to analgesic agent; Z88.8 Allergy status to other drugs, medicaments and biological substances
CPT/HCPCS: 36415; 71045; 80053; 80307; 81001; 83880; 84484; 85025; 87426; 93005

== ENCOUNTER 2023-11-01 00:16 | Inpatient (IN) | payer MEDICAID ==
[~2023-11-01] VITALS: Ht 175.3 cm; Wt 78.7 kg
[~2023-11-01 00:16] MED LIST changes: +ENAL1TAB42; -ENAL2.5T7
[2023-11-01 01:32] LABS: Basophils # (auto) 0.1 10 ^3/uL (0-0.2); Basophils % (auto) 2.1 % (0.0-2.0); Eosinophils # (auto) 0.2 10 ^3/uL (0-0.8); Eosinophils % (auto) 2.6 % (0.0-7.0); Hematocrit 36.9 % (41.0-53.0); Hemoglobin 12.7 g/dL (13.5-17.5); Lymphocytes # (auto) 2.3 10 ^3/uL (0.4-5.4); Lymphocytes % (auto) 36.8 % (10.0-50.0); Mean Corpuscular Hemoglobin 33.5 pg (28.0-32.0); Mean Corpuscular Hgb Conc. 34.3 g/dL (32.0-36.0); Mean Corpuscular Volume 97.6 fL (80.0-100.0); Monocytes # (auto) 0.5 10 ^3/uL (0-1.3); Monocytes % (auto) 8.5 % (0.0-12.0); Neutrophils # (auto) 3.1 10 ^3/uL (1.6-8.6); Red Blood Cells 3.78 10^6/uL (4.5-5.90); Red Cell Distribution Width 14.4 % (11.8-14.3); White Blood Cell 6.2 10^3/uL (4.4-10.8)
[2023-11-01 01:40] LABS: Chloride 107 mmol/L (98-107); Potassium 3.5 mmol/L (3.5-5.1); Sodium 140 mmol/L (136-145)
[2023-11-01] MEDS: predniSONE 20 MG TAB PO ONE (01:40)
[2023-11-01] MEDS: cefTRIAXone 1GM/50ML D5W 50 ML IV ONE (01:40)
[2023-11-01 01:41] VITALS: PULSE 86; RESP 16; O2SAT 96
[2023-11-01 01:41] LABS: Anion Gap 4 (5-15); Carbon Dioxide 29 mmol/L (20-30)
[2023-11-01 01:42] LABS: Calcium 8.3 mg/dL (8.5-10.1)
[2023-11-01 01:46] LABS: BUN/Creatinine Ratio 12.8 (10.0-20.0); Blood Urea Nitrogen 15 mg/dL (9-23); Glucose 97 mg/dL (74-106)
[2023-11-01] MEDS: CLINDAMYCIN 600MG IV 50 ML IV ONE (02:09)
[2023-11-01] MEDS ORDERED: ONDANSETRON HCL 4 MG/2 ML VIAL IV PRN (03:15)
[2023-11-01] MEDS: HYDROcodone-ACET 5/325MG TAB PO PRN (06:44)
[2023-11-01 10:10] VITALS: PULSE 60; RESP 12; O2SAT 97
[2023-11-01] MEDS: levETIRAcetam 500 MG TAB PO SCH (10:46)
[2023-11-01] MEDS: ENOXAPARIN SOD 40 MG/0.4 ML SYRINGE SC SCH (10:46)
[2023-11-01] MEDS: SACUBITRIL-VALSARTAN 24mg/26mg TAB PO SCH (10:47)
[2023-11-01] MEDS: CARVEDILOL 3.125 MG TAB PO SCH (10:48)
[2023-11-01] MEDS: FUROSEMIDE 40 MG TAB PO SCH (10:48)
[2023-11-01] MEDS: CLINDAMYCIN 600MG IV 50 ML IV SCH (10:49)
[2023-11-01 12:34] LABS: Amphetamine Screen, Urine Pos (NEGATIVE); Barbiturate Scree,Urine Neg (NEGATIVE); Benzodiazephine Screen, Urine Neg (NEGATIVE); Cannabinoid Screen, Urine Pos (NEGATIVE); Cocaine Screen, Urine Neg (NEGATIVE); Opiate Scree,Urine Neg (NEGATIVE); Phencyclidine Screen, Urine Neg (NEGATIVE)
[2023-11-01 14:28] VITALS: RESP 17
[2023-11-01] MEDS ORDERED: LACO1TAB PO (14:40)
[2023-11-01] MEDS ORDERED: LEVE100012 PO (14:40)
[2023-11-01] MEDS ORDERED: FURO40TA4 PO (14:40)
[2023-11-01] MEDS ORDERED: POTA10TA51 PO (14:40)
[2023-11-01] MEDS ORDERED: TAMS1CAP25 PO (14:40)
[2023-11-01] MEDS ORDERED: CEL100T PO (14:40)
[2023-11-01 17:48] VITALS: BP 126/71; PULSE 71; RESP 18; TEMP 97.6; O2SAT 94
[2023-11-01] MEDS: TAMSULOSIN HYDROCHLORIDE 0.4 MG CAP PO SCH (18:00)
[2023-11-01 20:00] VITALS: BP 118/70; PULSE 86; RESP 16; TEMP 98; O2SAT 96
[2023-11-01] MEDS: cefTRIAXone 1GM/50ML D5W 50 ML IV SCH (21:48)
[2023-11-01 22:00] VITALS: BP 125/75; PULSE 95; RESP 18; TEMP 98.2; O2SAT 94
[2023-11-02] MEDS: CLINDAMYCIN 600MG IV 50 ML IV SCH (03:23)
[2023-11-02 05:00] VITALS: BP 117/71; PULSE 61; RESP 16; TEMP 98.6; O2SAT 95
[2023-11-02 08:00] VITALS: BP 126/71; PULSE 68; RESP 14; TEMP 97.8; O2SAT 98
[2023-11-02 08:55] VITALS: BP 126/71; PULSE 68; RESP 14; TEMP 97.8; O2SAT 98
[2023-11-02 10:06] LABS: Basophils # (auto) 0.1 10 ^3/uL (0-0.2); Basophils % (auto) 0.9 % (0.0-2.0); Eosinophils # (auto) 0.1 10 ^3/uL (0-0.8); Eosinophils % (auto) 2.1 % (0.0-7.0); Hematocrit 37.1 % (41.0-53.0); Hemoglobin 12.6 g/dL (13.5-17.5); Lymphocytes # (auto) 2.4 10 ^3/uL (0.4-5.4); Lymphocytes % (auto) 39.3 % (10.0-50.0); Mean Corpuscular Hemoglobin 33.2 pg (28.0-32.0); Mean Corpuscular Volume 97.5 fL (80.0-100.0); Monocytes # (auto) 0.4 10 ^3/uL (0-1.3); Monocytes % (auto) 6.7 % (0.0-12.0); Neutrophils # (auto) 3.1 10 ^3/uL (1.6-8.6); Nucleated Red Blood Cells % 0.1 %; Red Cell Distribution Width 14.4 % (11.8-14.3)
[2023-11-02 10:15] LABS: Alanine Aminotransferase 55 U/L (7-40); Albumin 2.6 g/dL (3.2-4.8); Alkaline Phosphatase 110 U/L (46-116); Anion Gap 4 (5-15); Aspartate Aminotransferase 95 U/L (13-40); Bilirubin, Total 0.9 mg/dL (0.2-1.0); Blood Urea Nitrogen 14 mg/dL (9-23); Calcium 7.6 mg/dL (8.7-10.4); Carbon Dioxide 28 mmol/L (20-30); Chloride 108 mmol/L (98-107); Glucose 107 mg/dL (74-106); Potassium 3.1 mmol/L (3.5-5.1); Sodium 140 mmol/L (136-145); Total Protein 5.9 g/dL (5.7-8.2)
[2023-11-02 13:00] VITALS: BP 102/62; PULSE 69; RESP 18; TEMP 98; O2SAT 97
[2023-11-02] MEDS: HYDROcodone-ACET 10/325MG TAB PO PRN (13:17)
[2023-11-02] MEDS ORDERED: POTA-180 PO (13:19)
[2023-11-02] MEDS ORDERED: LACO100T3 PO (13:19)
[2023-11-02] MEDS ORDERED: LEVE750T3 PO (13:19)
[2023-11-02] MEDS ORDERED: SACU1TAB PO (13:21)
[2023-11-02] MEDS ORDERED: HYDR-3682 PO (13:21)
[2023-11-02] MEDS ORDERED: CYAN100056 PO (13:25)
[2023-11-02] MEDS: chlordiazePOXIDE HCL 25 MG CAP PO SCH (14:31)
[2023-11-02] MEDS: ACETAMINOPHEN 325 MG TAB PO PRN (14:32)
[2023-11-02 17:00] VITALS: BP 158/84; PULSE 98; RESP 18; TEMP 98.5; O2SAT 90
[2023-11-02 22:00] VITALS: BP 112/65; PULSE 71; RESP 17; TEMP 98.4; O2SAT 95
[2023-11-02] MEDS: QUEtiapine FUMARATE 25 MG TAB PO SCH (22:35)
[2023-11-03 05:00] VITALS: BP 107/63; PULSE 78; RESP 17; TEMP 98.2; O2SAT 94
[2023-11-03 07:30] VITALS: PULSE 70; RESP 16; O2SAT 97
[2023-11-03 09:19] VITALS: BP 96/61; PULSE 74; RESP 15; TEMP 97.8; O2SAT 95
[2023-11-03 12:05] VITALS: BP 92/59; PULSE 75; RESP 16; TEMP 97.8; O2SAT 95
[2023-11-03] MEDS: DULoxetine HCL 30 MG CAP PO SCH (12:15)
[2023-11-03 16:33] VITALS: BP 97/63; PULSE 77; RESP 16; O2SAT 95
[2023-11-03 22:00] VITALS: BP 106/73; PULSE 83; RESP 19; TEMP 98; O2SAT 97
[2023-11-04] VITALS (7 sets, daily range): BP systolic 89–128; BP diastolic 49–72; PULSE 68–80; RESP 15–18; TEMP 97.4–98.2; O2SAT 94–96
[2023-11-05 05:00] VITALS: BP 94/60; PULSE 76; RESP 16
[2023-11-05 09:00] VITALS: BP 103/70; PULSE 65; RESP 18; TEMP 98.1; O2SAT 98
[2023-11-05] MEDS: CLINDAMYCIN HCL 150 MG CAP PO SCH (12:28)
[2023-11-05 13:00] VITALS: BP 107/61; PULSE 75; RESP 18; TEMP 98; O2SAT 95
[2023-11-05 17:00] VITALS: BP 134/86; PULSE 79; RESP 18; TEMP 97.9; O2SAT 99
[2023-11-06 08:00] VITALS: BP 111/59; PULSE 68; RESP 18; O2SAT 95
[2023-11-06] MEDS ORDERED: CLIN300C70 PO (08:26)
[2023-11-06] MEDS ORDERED: DULO60CA41 PO (08:26)
[2023-11-06] MEDS ORDERED: QUET50TA PO (08:26)
[2023-11-06] MEDS ORDERED: HYDR-4902 PO (08:26)
[2023-11-06 08:53] VITALS: BP 111/59; PULSE 68; RESP 20; TEMP 97.4; O2SAT 96
[2023-11-06 11:59] VITALS: BP 111/59; PULSE 68; RESP 18; TEMP 98.7; O2SAT 94
== END 2023-11-06 13:10 | disposition home or self-care (01) | DRG 383 ==
LOC: ER 00:16 → OVERFLOW 03:10 → CENTRAL 13:41
PROVIDERS: ADMIT Nurse Practitioner; ATTEND Family Medicine
DX: L03.116 Cellulitis of left lower limb (principal); I50.43 Acute on chronic combined systolic (congestive) and diastolic (congestive) heart failure; E44.0 Moderate protein-calorie malnutrition; I11.0 Hypertensive heart disease with heart failure; R56.9 Unspecified convulsions; F22 Delusional disorders; I83.218 Varicose veins of right lower extremity with both ulcer of other part of lower extremity and inflammation; L97.819 Non-pressure chronic ulcer of other part of right lower leg with unspecified severity; L03.115 Cellulitis of right lower limb; F32.A Depression, unspecified; J45.909 Unspecified asthma, uncomplicated; F17.210 Nicotine dependence, cigarettes, uncomplicated; B95.61 Methicillin susceptible Staphylococcus aureus infection as the cause of diseases classified elsewhere; I83.228 Varicose veins of left lower extremity with both ulcer of other part of lower extremity and inflammation; L97.829 Non-pressure chronic ulcer of other part of left lower leg with unspecified severity; F12.10 Cannabis abuse, uncomplicated; F15.10 Other stimulant abuse, uncomplicated; Z68.25 Body mass index [BMI] 25.0-25.9, adult; Z71.51 Drug abuse counseling and surveillance of drug abuser; Z88.6 Allergy status to analgesic agent; Z91.041 Radiographic dye allergy status; Z56.0 Unemployment, unspecified; Z79.899 Other long term (current) drug therapy; Z91.51 Personal history of suicidal behavior; Z86.73 Personal history of transient ischemic attack (TIA), and cerebral infarction without residual deficits; Z83.3 Family history of diabetes mellitus; Z82.49 Family history of ischemic heart disease and other diseases of the circulatory system
CPT/HCPCS: 36415; 71045; 80048; 80053; 80307; 82962; 83605; 83880; 85025; 87040; 87077; 87186; 87205; 93306; 93970; 96365; 96366; 96368; G0378; J3490